=== PATIENT | female | born 1980 | race African-American/Black ===

== ENCOUNTER 2024-11-02 07:39 | Outpatient (CLI) | payer OTHER, SELFPAY ==
--- OUTSIDE RECORDS SUMMARY | 2024-11-02 07:45 | XMS_ITS | Encounter Summary ---
Author Organization [facility] Address [address] [place] [address] Care Team Providers Care Home Appliance Installer Name Role Phone Zuri Thomas MD Primary Care Provider [phone] Bola Deleon MD Unavailable Encounter Details Date Type Department Care Team (Late st Contact Info) Description 08/04/2022 niviot Message Enc [facility] Medical Group Diabetes and Endocrinology - [place] [address] [place] [address] [place] [address] [place] [address] Follow up Social History Tobacco Use Types Packs/Day Years Used Date Smoking Tobacco: Never Smokeless Tobacco: Never Alcohol Use Standard Drinks/Week Comments Yes 3.3 (1 standard drink = 0.6 oz p ure alcohol) Special occasions PHQ-2 Answer Date Recorded Patient Health Questionnaire-2 Score 1 04/01/2022 Exercise Vital Sign Answer Date Recorde d Days of Exercise per Week 4 days 2019 Minutes of Exercise per Session 60 min 01/12/2020 Education Answer Date Recorded What is the highest level of school you have completed or the highest degree you have received? Bachelor's degree (e.g., BA, AB, BS) 01/12/2020 Comments No Sex and Gender Information Value Date Recorded Sex Assigned at Female 06/07/2024 3:09 PM SPECIAL EFFECTS ARTIST Legal Sex Female 6:41 PM CDT Gender Identity Not on file Sexual Orientation Not on file Occupation Industry Job Start Date Job End Date Not on file Not on file Not on file Not on file documented as of this encounter Plan of Treatment Upcoming Encounters Date Type Department Care Team (Latest Contact Info) Description 11/15/2024 9:30 AM CDT Allied Health/Nurse Visit [facility] Mult[facility]pecialty Care - [facility] 3 [facility], [address] [place] [address] Bogdan Camacho MD 3 [facility] [place] [address] 11/15/2024 10:[address] [place] [address] Bogdan Camacho MD 3 [place] [address] 11/15/2024 2:20 PM CDT Office Visit [facility] Family Medicine - [place] [address] [place] [address] Zuri Thomas MD [address] [place] [address] 11/28/2024 7:30 AM CDT Hospital Encounter [facility] [place] [address] Bogdan Camacho MD 3 [place] [address] 11/28/2024 7:30 AM CDT - 11/28/2024 12:[address] [facility] [place] [address] Bogdan Camacho MD 3 [facility] [place] [address] LUMBAR 4-5, LUMBAR 5- SACRAL 1 ANTERIOR LUMBAR INTERBODY FUSION, INTERNAL FIXATION WITH ANTERIOR LUMBAR PLATE, LUMBAR 4, LUMBAR 5, SACRAL 1 POSTERIOR SPINAL FIXATION, AUTOGRAFT, ALLOGRAFT, BONE MORPHOGENIC PROTEIN 12/12/2024 1:40 PM CDT Office Visit [facility] Mult[facility]pecialty Care - [facility] 3 [facility], [address] [place] [address] Madelaine Zaragoza APRN 3 [facility] [address] [place] [address] 12/26/2024 3:20 PM CDT Office Visit [facility] Family Medicine [facility] [address]6 [place] [address] Zuri Thomas MD 1116 [place] [address] Scheduled Procedures Name Priority Associated Diagnoses Date/Ti me FUSION SPINAL ANTERIOR LUMBAR 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 [address] [place] [address] Referring Physician VASCULAR SURGERY 10/18/24 documented as of this encounter
--- OUTSIDE RECORDS SUMMARY | 2024-11-02 07:45 | XMS_ITS | Encounter Summary ---
Author Organization [facility] Address [address] [place] [address] Care Team Providers Care Health And Nutrition Specialist Name Role Phone Zuri Thomas MD Primary Care Provider [phone] Bola Deleon MD Unavailable Encounter Details Date Type Department Care Team (Late st Contact Info) Description 09/20/2024 LiftMetrix Message Enc [facility] Medical Group Family Medicine [facility] [address] [place] [address] Zuri Thomas MD [address] [place] [address] Vascular surgeon Social History Tobacco Use Types Packs/Day Years Used Date Smoking Tobacco: Never Passive Smoke Exposure: Never Smokeless Tobacco: Never Alcohol Use Standard Drinks/Week Comments Yes 3.3 (1 standard drink = 0.6 oz p ure alcohol) Special occasions PHQ-2 Answer Date Recorded Patient Health Questionnaire-2 Score 3 09/13/2024 Exercise Vital Sign Answer Date Recorde d [...] Sex Assigned at Female 06/07/2024 3:09 PM BEEF CATTLE SPECIALIST Legal Sex Female 6:41 PM CDT Gender Identity Not on file Sexual Orientation Not on file Occupation Industry Job Start Date Job End Date Not on file Not on file Not on file Not on file documented as of this encounter Plan of Treatment Upcoming Encounters Date Type Department Care Team (Latest Contact Info) Description 11/15/2024 9:30 AM CDT Allied Health/Nurse Visit [facility] Mult[facility]pecialty Care - [place] 3 [facility], [address] [place] [address] Bogdan Camacho MD 3 [place] [address] 11/15/2024 10:[address] [place] [address] Bogdan Camacho MD 3 [place] [address] 11/15/2024 2:20 PM CDT Office Visit [facility] Family Medicine - [address] [phone] Zuri Thomas MD [address] [place] [address] 11/28/2024 7:30 AM CDT Hospital Encounter [facility] One Day Services ONE [facility]3][place] [address] Bogdan Camacho MD 3 [place] [address] 11/28/2024 7:30 AM CDT - 11/28/2024 12:44 PM CDT Surgery [place] [facility] [place] [address] Bogdan Camacho MD 3 [place] [address] LUMBAR 4-5, LUMBAR 5- SACRAL 1 ANTERIOR LUMBAR INTERBODY FUSION, INTERNAL FIXATION WITH ANTERIOR LUMBAR PLATE, LUMBAR 4, LUMBAR 5, SACRAL 1 POSTERIOR SPINAL FIXATION, AUTOGRAFT, ALLOGRAFT, BONE MORPHOGENIC PROTEIN 12/12/2024 1:40 PM CDT Office Visit [facility] Multispecialty Care - [facility] 3 [facility], [address] [place] [address] Madelaine Zaragoza APRN 3 [facility] [address] [place] [address] 12/26/2024 3:20 PM CDT Office Visit [facility] Family Medicine 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 [place] [address] [place] [address] Referring Physician VASCULAR SURGERY 10/18/24 documented as of this encounter
--- OUTSIDE RECORDS SUMMARY | 2024-11-02 07:45 | XMS_ITS | Patient Health Record ---
Author Organization [facility] Address [address] [place], [place] [address] Care Team Providers Care Art Gilder Name Role Phone RAMAN GALDAMEZ Unavailable [phone] Delores Ge Unavailable Unavailable Reason For Referral No Information Plan Of Treatment No Information Insurance Providers Payer Name Payer Address Payer Phone Subscriber Number Group Number Insured Name Patient Relationship to Insured Coverage Start Date Coverage End Date [facility] [address] [address] [place] [id number] VIN BRUCE Self - patient is the insured
--- OUTSIDE RECORDS SUMMARY | 2024-11-02 07:45 | XMS_ITS | Encounter Summary ---
Author Organization [facility] Address [address] [place] [address] Care Team Providers Care Water Softener Servicer And Installer Name Role Phone Zuri Thomas MD Primary Care Provider [phone] Bola Deleon MD Unavailable Encounter Details Date Type Department Care Team (Late st Contact Info) Description 06/10/2022 Aster DM [employer] Message Enc [facility] Medical Group Multispecialty Care - [facility] 3 [facility], [address] [place] [address] Madelaine Zaragoza APRN [address] [facility] [address] [place] [address] Med request Social History Tobacco Use Types Packs/Day Years [...] Sex Assigned at Female 06/07/2024 3:09 PM SENIOR MEDIA BUYER Legal Sex Female 6:41 PM CDT Gender Identity Not on file Sexual Orientation Not on file Occupation Industry Job Start Date Job End Date Not on file Not on file Not on file Not on file COVID-19 Exposure Response Date Recorded In the last 10 days, have yo u been in contact with someone who was confirmed or suspected to have Coronavirus/COVID-19? No / Unsure 06/08/2022 4:33 PM SENIOR MEDIA BUYER documented as of this encounter Plan of Treatment Upcoming Encounters Date Type Department Care Team (Latest Contact Info) Description 11/15/2024 9:30 AM CDT Allied Health/Nurse Visit [facility] Multispecialty Care - [facility] 3 [facility], [address] [address] Bogdan Camacho MD 3 [place] [address] 11/15/2024 10:00 AM CDT Appointment [facility] [place] [address] Bogdan Camacho MD 3 [place] [address] 11/15/2024 2:20 PM CDT Office Visit [facility] Family Medicine - [place] [address] [place] [address] [place] [address] [place] [address] 11/28/2024 7:30 AM CDT Hospital Encounter [facility] [place] [address] Bogdan Camacho MD [address] [place] [address] 11/28/2024 7:30 AM CDT - 11/28/2024 12:44 PM CDT Surgery [facility] [place] [address] Bogdan Camacho MD 3 [place] [address] LUMBAR 4-5, LUMBAR 5- SACRAL 1 ANTERIOR LUMBAR INTERBODY FUSION, INTERNAL FIXATION WITH ANTERIOR LUMBAR PLATE, LUMBAR 4, LUMBAR 5, SACRAL 1 POSTERIOR SPINAL FIXATION, AUTOGRAFT, ALLOGRAFT, BONE MORPHOGENIC PROTEIN 12/12/2024 1:40 PM CDT Office Visit [facility] Multispecialty Care - [facility] 3 [facility], [address] [place] [address] Madelaine Zaragoza APRN [address] [facility] [address] [place] [address] 12/26/2024 3:20 PM CDT Office Visit [facility] Family Medicine - [address] [phone] Zuri Thomas MD [address] [place] [address] Scheduled Procedures Name Priority Associated Diagnoses Date/Ti me FUSION SPINAL ANTERIOR LUMBAR 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 [place] [address] [place] [address] Referring Physician VASCULAR SURGERY 10/18/24 documented as of this encounter
--- OUTSIDE RECORDS SUMMARY | 2024-11-02 07:45 | XMS_ITS | Encounter Summary ---
Author Organization [facility] Address [address] [place] [address] Care Team Providers Care Shoe Handler Name Role Phone Zuri Thomas MD Primary Care Provider [phone] Bola Deleon MD Unavailable Encounter Details Date Type Department Care Team (Late st Contact Info) Description 08/04/2022 Cop[employer] Message Enc [facility] Medical Group Diabetes and Endocrinology [place] [address] [place] [address] [place] [address] [place] [address] Social History Tobacco Use Types Packs/Day Years [...] Sex Assigned at Female 06/07/2024 3:09 PM POULTRY OFFAL ICER Legal Sex Female 6:41 PM CDT Gender Identity Not on file Sexual Orientation Not on file Occupation Industry Job Start Date Job End Date Not on file Not on file Not on file Not on file documented as of this encounter Plan of Treatment Upcoming Encounters Date Type Department Care Team (Latest Contact Info) Description 11/15/2024 9:30 AM CDT Allied Health/Nurse Visit [facility] Multispecialty Care - [facility] 3 [facility], [address] [place] [address] Bogdan Camacho MD 3 [facility] [place] [address] 11/15/2024 10:[address] [address] Bogdan Camacho MD 3 [place] [address] 11/15/2024 2:20 PM CDT Office Visit [facility] Family Medicine - [place] [address] [place] [address] Zuri Thomas MD [address] [place] [address] 11/28/2024 7:30 AM CDT Hospital Encounter [facility] [place] [address] Bogdan Camacho MD 3 [place] [address] 11/28/2024 7:30 AM CDT - 11/28/2024 12:[address] [place] [address] Bogdan Camacho MD 3 [facility] [place] [address] LUMBAR 4-5, LUMBAR 5- SACRAL 1 ANTERIOR LUMBAR INTERBODY FUSION, INTERNAL FIXATION WITH ANTERIOR LUMBAR PLATE, LUMBAR 4, LUMBAR 5, SACRAL 1 POSTERIOR SPINAL FIXATION, AUTOGRAFT, ALLOGRAFT, BONE MORPHOGENIC PROTEIN 12/12/2024 1:40 PM CDT Office Visit [facility] Multispecialty Care - [facility] 3 [facility], [address] [place] [address] Madelaine Zaragoza APRN [address] 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 [address] [place] [address] Referring Physician VASCULAR SURGERY 10/18/24 documented as of this encounter
--- OUTSIDE RECORDS SUMMARY | 2024-11-02 07:45 | XMS_ITS | Clinical Summary ---
Author Organization [facility] Address [address] [place] [address] Care Team Providers Care Surgical Nurse Name Role Phone Unavailable Primary Care Provider Unavailabl e Social History Tobacco Use Types Packs/Day Years Used Date Smoking Tobacco: Never Assessed Comments Unknown Sex and Gender Information Value Date Recorded Sex Assigned at Not on file Legal Sex Female 2:40 PM REGISTERED PHARMACIST Gender Identity Not on file Sexual Orientation Not on file Plan of Treatment Health Maintenance Due Date Last Done Comments Hepatitis C Virus (HCV) Screening 1978 Hepatitis B Immunization (1 of 3 - 19+ 3-dose series) 1997 Pap Smear 1999 Cervical Cancer Screening (CCS) 2008 HPV/Cotest 2008 Cologuard 2023 Colonoscopy 2023 Colorectal Cancer Screening 2023 Immunochemical Fecal Occult Blood 2023 SARS-COV-2 Immunization ( season) 2023 06/11/2020, 05/21/2020 Influenza Immunization (#1) 2024 01/03/2019, 0 12/17/2018 Respiratory Syncytial Virus (RSV) Immunization (Adult) (1 - 1-dose 75+ series) 2053 DTaP/Tdap/Td Immunization Discontinued 2014, 11/13/1989, 06/12/1980, Additional history exists TdaP Immunization Completed 05/02/2014 Human Papillomavirus (HPV) Immunization Aged Out No longer eligible based on patient's age to complete this topic Meningococcal Immunization (ACWY) Aged Out No longer eligible based on patient's age to complete this topic Pneumococcal Immunization Combined Aged Out No longer eligible based on patient's age to complete this topic Rotavirus Immunization Aged Out No lo nger eligible based on patient's age to complete this topic
--- OUTSIDE RECORDS SUMMARY | 2024-11-02 07:45 | XMS_ITS | Encounter Summary ---
Author Organization [facility] Address [address] [place] [address] Care Team Providers Care Supervisor Home Restoration Service Name Role Phone Zuri Thomas MD Primary Care Provider [phone] Bola Deleon MD Unavailable Encounter Details Date Type Department Care Team ( Contact Info) Description 09/30/2022 MyChart Message Enc [facility] Medical Group - [facility] [address] [place] [address] [employer], [facility] Provider Air Quality Message Social History Tobacco Use Types Packs/Day Years [...] Sex Assigned at Female 06/07/2024 3:09 PM LITIGATION COORDINATOR Legal Sex Female 6:41 PM CDT Gender Identity Not on file Sexual Orientation Not on file Occupation Industry Job Start Date Job End Date Not on file Not on file Not on file Not on file documented as of this encounter Plan of Treatment Upcoming Encounters Date Type Department Care Team (Latest Contact Info) Description 11/15/2024 9:30 AM CDT Allied Health/Nurse Visit [facility] Multispecialty Care - [facility] 3 [facility], [address] [address] Bogdan Camacho MD 3 [place] [address] 11/15/2024 10:[address] [place] [address] Bogdan Camacho MD 3 [place] [address] 11/15/2024 2:20 PM CDT Office Visit [facility] Family Medicine - [place] [address] [place] [address] Zuri Thomas MD [address] [place] [address] 11/28/2024 7:30 AM CDT Hospital Encounter [facility] [place] [address] Bogdan Camacho MD 3 [place] [address] 11/28/2024 7:30 AM CDT - 11/28/2024 12:[address] [place] [address] Bogdan Camacho MD 3 [place] [address] LUMBAR 4-5, LUMBAR 5- SACRAL 1 ANTERIOR LUMBAR INTERBODY FUSION, INTERNAL FIXATION WITH ANTERIOR LUMBAR PLATE, LUMBAR 4, LUMBAR 5, SACRAL 1 POSTERIOR SPINAL FIXATION, AUTOGRAFT, ALLOGRAFT, BONE MORPHOGENIC PROTEIN 12/12/2024 1:40 PM CDT Office Visit [facility] Mult[facility]ialty Care - [facility] 3 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 [address] [place] [address] Referring Physician VASCULAR SURGERY 10/18/24 documented as of this encounter
--- OUTSIDE RECORDS SUMMARY | 2024-11-02 07:45 | XMS_ITS | Encounter Summary ---
Author Organization [facility] Address [address] [place] [address] Care Team Providers Care Continuum Of Care Manager Name Role Phone Zuri Thomas MD Primary Care Provider [phone] Bola Deleon MD Unavailable Encounter Details Date Type Department Care Team (Late st Contact Info) Description 08/16/[address] Mediat Message Enc [facility] Medical Group Multispecialty Care - [facility] 3 [facility], [address] [place] [phone] Bogdan Camacho MD 3 [place] [address] Question /FYI Social History Tobacco Use Types Packs/Day Years Used Date Smoking Tobacco: Never Smokeless Tobacco: Never Alcohol Use Standard Drinks/Week Comments Yes 3.3 (1 standard drink = 0.6 oz p ure alcohol) Special occasions PHQ-2 Answer Date Recorded Patient Health Questionnaire-2 Score 2 06/23/2024 Exercise Vital Sign Answer Date Recorde d [...] Sex Assigned at Female 06/07/2024 3:09 PM PRODUCT SUPPORT REPRESENTATIVE Legal Sex Female 6:41 PM CDT Gender Identity Not on file Sexual Orientation Not on file Occupation Industry Job Start Date Job End Date Not on file Not on file Not on file Not on file documented as of this encounter Plan of Treatment Upcoming Encounters Date Type Department Care Team (Latest Contact Info) Description 11/15/2024 9:30 AM CDT Allied Health/Nurse Visit [facility] Multispecialty Care - [place] 3 [facility], [address] [place] [address] Bogdan Camacho MD 3 [place] [address] 11/15/2024 10:[address] [facility] [place] [address] Bogdan Camacho MD 3 [place] [address] 11/15/2024 2:20 PM CDT Office Visit [facility] Family Medicine - [address] [phone] Zuri Thomas MD [address] [place] [address] 11/28/2024 7:30 AM CDT Hospital Encounter [facility] [place] [address] Bogdan Camacho MD 3 [place] [address] 11/28/2024 7:30 AM CDT - 11/28/2024 12:44 PM CDT Surgery [facility] [place] [address] Bogdan Camacho MD 3 [place] [address] LUMBAR 4-5, LUMBAR 5- SACRAL 1 ANTERIOR LUMBAR INTERBODY FUSION, INTERNAL FIXATION WITH ANTERIOR LUMBAR PLATE, LUMBAR 4, LUMBAR 5, SACRAL 1 POSTERIOR SPINAL FIXATION, AUTOGRAFT, ALLOGRAFT, BONE MORPHOGENIC PROTEIN 12/12/2024 1:40 PM CDT Office Visit [facility] Medical Group Multispecialty Care - [facility] 3 [facility], [address] [place] [address] Madelaine Zaragoza APRN 3 [facility] [address] [place] [address] 12/26/2024 3:20 PM CDT Office Visit [facility] Medical Group Family Medicine [facility] [address] [place] [phone] Zuri Thomas MD [address] [place] [address] Scheduled Procedures Name Priority Associated Diagnoses Date/Ti me FUSION SPINAL ANTERIOR LUMBAR INTERBODY 2 LEVEL SPONDYLOLISTHESIS OF LUMBAR REGION, 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
--- OUTSIDE RECORDS SUMMARY | 2024-11-02 07:46 | XMS_ITS | Encounter Summary ---
Author Organization [facility] Address [address] [place] [address] Care Team Providers Care Waiter/Waitress Economy Class Name Role Phone Zuri Thomas MD Primary Care Provider [phone] Bola Deleon MD Unavailable Encounter Details Date Type Department Care Team (Late st Contact Info) Description 07/28/2024 [email or web address] Message Enc [facility] Medical Group Family Medicine [facility] [address] [place] [address] Zuri Thomas MD [address] [place] [address] Annual wellness Social History Tobacco Use Types Packs/Day Years [...] Sex Assigned at Female 06/07/2024 3:09 PM HAND RIVETER Legal Sex Female 6:41 PM CDT Gender Identity Not on file Sexual Orientation Not on file Occupation Industry Job Start Date Job End Date Not on file Not on file Not on file Not on file documented as of this encounter Plan of Treatment Upcoming Encounters Date Type Department Care Team (Latest Contact Info) Description 11/15/2024 9:30 AM CDT Allied Health/Nurse Visit [facility] Multispecialty Care - [facility] [address] [place], [address] [place] [address] Bogdan Camacho MD 3 [facility] [address] 11/15/2024 10:[address] [place] [address] Bogdan Camacho MD 3 [place] [address] 11/15/2024 2:20 PM CDT Office Visit [facility] Family Medicine - [address] [phone] Zuri Thomas MD [address] [place] [address] 11/28/2024 7:30 AM CDT Hospital Encounter [facility] [address] Bogdan Camacho MD 3 [place] [address] 11/28/2024 7:30 AM CDT - 11/28/2024 12:[address] [facility] [place] [address] Bogdan Camacho MD 3 [facility] [address] LUMBAR 4-5, LUMBAR 5- SACRAL 1 ANTERIOR LUMBAR INTERBODY FUSION, INTERNAL FIXATION WITH ANTERIOR LUMBAR PLATE, LUMBAR 4, LUMBAR 5, SACRAL 1 POSTERIOR SPINAL FIXATION, AUTOGRAFT, ALLOGRAFT, BONE MORPHOGENIC PROTEIN 12/12/2024 1:40 PM CDT Office Visit [facility] Multispecialty Care - [facility] 3 [facility], [address] [place] [address] Madelaine Zaragoza APRN 3 [facility] [address] [place] [address] 12/26/2024 3:20 PM CDT Office Visit [facility] Family Medicine [facility] [address] [place] [address] Zuri Thomas MD [facility]6 [place] [address] Scheduled Procedures Name Priority Associated Diagnoses Date/Ti me FUSION SPINAL ANTERIOR LUMBAR INTERBODY 2 LEVEL SPONDYLOLISTHESIS OF LUMBAR REGION, 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 [place] [id number] [place] [address] Referring Physician VASCULAR SURGERY 10/18/24 documented as of this encounter
--- OUTSIDE RECORDS SUMMARY | 2024-11-02 07:46 | XMS_ITS | Encounter Summary ---
Author Organization [facility] Address [address] [place] [address] Care Team Providers Care Earth Science Teacher Name Role Phone Zuri Thomas MD Primary Care Provider [phone] Bola Deleon MD Unavailable Reason for Visit * Reason Onset Date Comments Refill Request 09/11/2024 Encounter Details Date Type Department Care Team (Late st Contact Info) Description 09/11/2024 PocketMobilet Message Enc [facility] Medical Group Family Medicine [facility] [address] [place] [address] [place] [address] [place] [address] Medication Social History Tobacco Use Types Packs/Day Years [...] Sex Assigned at Female 06/07/2024 3:09 PM 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 Question Answer Date of Assessment Author Status Little interest or pleasure in doing things Several days 09/13/2024 8:02 AM KALEET Sara Chavez MA Active Feeling down, depressed, or hopeless More than half the days 09/13/2024 8:02 AM CDT Sara Chavez MA Active Patient Health Questionnaire-2 Score 3 09/13/2024 8:02 AM KALEET Sara Chavez MA Active * Question Answer Date of Assessment Author Status Trouble falling or staying asleep, or sleeping too much Nearly every day 09/13/2024 8:02 AM Sara Garcia MA Active Feeling tired or having little energy Nearly every day 09/13/2024 8:02 AM Sara Garcia MA Active Poor appetite or overeating Nearly every day 09/13/2024 8:02 AM Sara Garcia MA Active Feeling bad about yourself - or that you are a failure or have let yourself or your family down Several days 09/13/2024 8:02 AM Sara Garcia MA Active Trouble concentrating on things, such as reading the newspaper or watching television More than half the days 09/13/2024 8:02 AM Sara Garcia MA Active Moving or speaking so slowly that other people could have noticed? Or the opposite - being so fidgety or restless that you have been moving around a lot more than usual. Nearly every day 09/13/2024 8:02 AM Sara Garcia MA Active Thoughts that you would be better off or hurting yourself in some way Not at all 09/13/2024 8:02 AM Sara Garcia MA Active Patient Health Questionnaire-9 Score 18 09/13/2024 8:02 AM CDT Sara Chavez MA Active * If you checked off any problems on this questionnaire so far, Question Answer Date of Assessment Author Status How difficult have these problems made it for you to do your work, take care of things at home, or get along with other people? Somewhat difficult 09/13/2024 8:02 AM CDT Sara Chavez MA Active documented as of this encounter Progress Notes * Mirza Underwood MA - 09/11/2024 4:26 PM CDT Recent Visits Date Type Provider Dept 06/23/24 Office Visit Zuri Thomas MD [facility] 06/07/24 Office Visit Zuri Thomas MD [facility] Showing recent visits within past 285 days and meeting all other requirements Future Appointments No visits were found meeting these conditions. Showing future appointments within next 105 days and meeting all other requirements documented in this encounter Plan of Treatment Upcoming Encounters Date Type Department Care Team (Latest Contact Info) Description 11/15/2024 9:30 AM CDT Allied Health/Nurse Visit [facility] Mult[facility]ialty Care - [facility] [address] [facility], [address] [place] [address] Bogdan Camacho MD 3 [place] [address] 11/15/2024 10:00 AM CDT Appointment [facility] [address] Bogdan Camacho MD 3 [place] [address] 11/15/2024 2:20 PM CDT Office Visit [facility] Family Medicine - [address] [address] Zuri Thomas MD [address] [place], [place] [id number] 11/28/2024 7:30 AM CDT Hospital Encounter [facility] [place] [address] Bogdan Camacho MD 3 [place] [address] 11/28/2024 7:30 AM CDT - 11/28/2024 12:44 PM CDT Surgery [place] [address] Bogdan Camacho MD 3 [place] [address] LUMBAR 4-5, LUMBAR 5- SACRAL 1 ANTERIOR LUMBAR INTERBODY FUSION, INTERNAL FIXATION WITH ANTERIOR LUMBAR PLATE, LUMBAR 4, LUMBAR 5, SACRAL 1 POSTERIOR SPINAL FIXATION, AUTOGRAFT, ALLOGRAFT, BONE MORPHOGENIC PROTEIN 12/12/2024 1:40 PM CDT Office Visit [facility] Mult[facility]pecialty Care - [facility] 3 [facility], [address] [facility] [place] [address] Madelaine Zaragoza, ABIMAEL [address] 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
--- OUTSIDE RECORDS SUMMARY | 2024-11-02 07:46 | XMS_ITS | Encounter Summary ---
Author Organization [facility] Address [address] [place] [address] Care Team Providers Care Methane Gas Collection System Operator Name Role Phone Zuri Thomas MD Primary Care Provider [phone] Bola Deleon MD Unavailable Encounter Details Date Type Department Care Team (Late st Contact Info) Description 07/12/2024 Sribut Message Enc [facility] Medical Group Multispecialty Care - [facility] 3 [facility], [address] [place] [phone] Bogdan Camacho MD 3 [place] [address] Headaches Social History Tobacco Use Types Packs/Day Years [...] Sex Assigned at Female 06/07/2024 3:09 PM 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 Offered to place patient on waitilist for sooner appt. * Lachelle Lerner LPN - 07/21/2024 11:35 AM CDT Pt states she started having right lumbar pain down right buttock wrapping into right groin down lateral upper leg into side of gomez that started 2 weeks ago with no cause. Denies any N/T in legs, feet, toes Bend down worsens pain Rates pain a 10/10 at its worst, average daily pain level is a 6/10. Ibuprofen, Tylenol. No UI/bowel movement incontinence, no falls, injuries/accidents. documented in this encounter Plan of Treatment Upcoming Encounters Date Type Department Care Team (Latest Contact Info) Description 11/15/2024 9:30 AM CDT Allied Health/Nurse Visit [facility] Medical Group Multispecialty Care - [facility] 3 [facility], [address] [place] [address] Bogdan Camacho MD 3 [place] [address] 11/15/2024 10:00 AM CDT Appointment [facility] [place] [address] Bogdan Camacho MD 3 [place] [address] 11/15/2024 2:20 PM CDT Office Visit [facility] Family Medicine - [place] [address] [place] [address] Zuri Thomas MD [facility]6 [place] [address] 11/28/2024 7:30 AM CDT Hospital Encounter [facility] [place] [address] Bogdan Camacho MD 3 [place] [address] 11/28/2024 7:30 AM CDT - 11/28/2024 12:44 PM CDT Surgery [facility] [place] [address] Bogdan Camacho MD 3 [place] [address] LUMBAR 4-5, LUMBAR 5- SACRAL 1 ANTERIOR LUMBAR INTERBODY FUSION, INTERNAL FIXATION WITH ANTERIOR LUMBAR PLATE, LUMBAR 4, LUMBAR 5, SACRAL 1 POSTERIOR SPINAL FIXATION, AUTOGRAFT, ALLOGRAFT, BONE MORPHOGENIC PROTEIN 12/12/2024 1:40 PM CDT Office Visit [facility] Multispecialty Care - [facility] 3 [facility], [address] [place] [address] Madelaine Zaragoza APRN 3 [facility] [address] [place] [address] 12/26/2024 3:20 PM CDT Office Visit [facility] Medical Group Family [facility] [address] [place] [address] Zuri Thomas MD [address] [place] [address] Scheduled Procedures Name Priority Associated Diagnoses Date/Ti me FUSION SPINAL ANTERIOR LUMBAR INTERBODY 2 LEVEL SPONDYLOLISTHESIS OF LUMBAR REGION, 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
--- OUTSIDE RECORDS SUMMARY | 2024-11-02 07:46 | XMS_ITS | Encounter Summary ---
Author Organization [facility] Address [address] [place] [address] Care Team Providers Care Still Runner Name Role Phone Zuri Thomas MD Primary Care Provider [phone] Bola Deleon MD Unavailable Encounter Details Date Type Department Care Team (Late st Contact Info) Description 07/10/2024 Business Textert Message Enc [facility] Medical Group Family Medicine [facility] [address] [place] [address] [place] [address] [place] [address] Symptoms Social History Tobacco Use Types Packs/Day Years [...] Sex Assigned at Female 06/07/2024 3:09 PM CEMENT BLOCK 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 Legal Sex Female 6:41 PM CDT Gender Identity Not on file Sexual Orientation Not on file Occupation Industry Job Start Date Job End Date Not on file Not on file Not on file Not on file documented as of this encounter Plan of Treatment Upcoming Encounters Date Type Department Care Team (Latest Contact Info) Description 11/15/2024 9:30 AM CDT Allied Health/Nurse Visit [facility] Mult[facility]pecialty Care - [facility] [address] [place], [address] [place] [address] Bogdan Camacho MD 3 [facility] [place] [address] 11/15/2024 10:[address] [place] [address] Bogdan Camacho MD 3 [place] [address] 11/15/2024 2:20 PM CDT Office Visit [facility] Family Medicine - [address] [phone] Zuri Thomas MD [address] [place] [address] 11/28/2024 7:30 AM CDT Hospital Encounter [facility] [place] [address] Bogdan Camacho MD 3 [place] [address] 11/28/2024 7:30 AM CDT - 11/28/2024 12:[address] [place] [address] Bogdan Camacho MD 3 [facility] [place] [address] LUMBAR 4-5, LUMBAR 5- SACRAL 1 ANTERIOR LUMBAR INTERBODY FUSION, INTERNAL FIXATION WITH ANTERIOR LUMBAR PLATE, LUMBAR 4, LUMBAR 5, SACRAL 1 POSTERIOR SPINAL FIXATION, AUTOGRAFT, ALLOGRAFT, BONE MORPHOGENIC PROTEIN 12/12/2024 1:40 PM CDT Office Visit [facility] Multispecialty Care - [facility] 3 [facility], [address] [place] [address] Madelaine Zaragoza APRN 3 [facility] [address] [place] [address] 12/26/2024 3:20 PM CDT Office Visit [facility] Family Medicine [facility] [address] [place] [address] Zuri Thomas MD 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 [place] [place] [address] Referring Physician VASCULAR SURGERY 10/18/24 documented as of this encounter
--- OUTSIDE RECORDS SUMMARY | 2024-11-02 07:46 | XMS_ITS | Encounter Summary ---
Author Organization [facility] Address [address] [place] [address] Care Team Providers Care Art Professor Name Role Phone Zuri Thomas MD Primary Care Provider [phone] Bola Deleon MD Unavailable Encounter Details Date Type Department Care Team (Late st Contact Info) Description 07/06/2024 T-ZONE Message Enc [facility] Medical Group Family Medicine [facility] [address] [place] [address] Zuri Thomas MD [address] [place] [address] Medical records Social History Tobacco Use Types Packs/Day Years [...] Sex Assigned at Female 06/07/2024 3:09 PM E COMMERCE DEVELOPER Legal Sex Female 6:41 PM CDT Gender Identity Not on file Sexual Orientation Not on file Occupation Industry Job Start Date Job End Date Not on file Not on file Not on file Not on file documented as of this encounter Plan of Treatment Upcoming Encounters Date Type Department Care Team (Latest Contact Info) Description 11/15/2024 9:30 AM CDT Allied Health/Nurse Visit [facility] Multispecialty Care - [facility] [address] [place], [address] [place] [address] Bogdan Camacho MD 3 [facility] [place] [address] 11/15/2024 10:[address] [place] [address] Bogdan Camacho MD 3 [place] [address] 11/15/2024 2:20 PM CDT Office Visit [facility] Family Medicine - [address] [phone] Zuri Thomas MD [address] [place] [address] 11/28/2024 7:30 AM CDT Hospital Encounter [facility] [place] [place] [address] Bogdan Camacho MD 3 [place] [address] 11/28/2024 7:30 AM CDT - 11/28/2024 12:[address] [facility] [place] [address] Bogdan Camacho MD 3 [facility] [place] [address] LUMBAR 4-5, LUMBAR 5- SACRAL 1 ANTERIOR LUMBAR INTERBODY FUSION, INTERNAL FIXATION WITH ANTERIOR LUMBAR PLATE, LUMBAR 4, LUMBAR 5, SACRAL 1 POSTERIOR SPINAL FIXATION, AUTOGRAFT, ALLOGRAFT, BONE MORPHOGENIC PROTEIN 12/12/2024 1:40 PM CDT Office Visit [facility] Multispecialty Care - [facility] 3 [facility], [address] [place] [address] Madelaine Zaragoza APRN 3 [facility] [address] [place] [address] 12/26/2024 3:20 PM CDT Office Visit [facility] Family Medicine [facility] [address] [place] [address] Zuri Thomas MD [facility]6 [place] [address] Scheduled Procedures Name Priority Associated Diagnoses Date/Ti me FUSION SPINAL ANTERIOR LUMBAR INTERBODY 2 LEVEL SPONDYLOLISTHESIS OF LUMBAR REGION, 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 [address] [place] [address] Referring Physician VASCULAR SURGERY 10/18/24 documented as of this encounter
--- OUTSIDE RECORDS SUMMARY | 2024-11-02 07:46 | XMS_ITS | Encounter Summary ---
Author Organization [facility] Address [address] [place] [address] Care Team Providers Care Package Reinspector Name Role Phone Zuri Thomas MD Primary Care Provider [phone] Bola Deleon MD Unavailable Encounter Details Date Type Department Care Team (Late st Contact Info) Description 11/01/2024 Orders Only [facility] [place] [address] Casey Parham MD [address] [place] [address] Social History Tobacco Use Types Packs/Day Years [...] Sex Assigned at Female 06/07/2024 3:09 PM EVAPORATOR OPERATOR MOLASSES Legal Sex Female 6:41 PM CDT Gender Identity Not on file Sexual Orientation Not on file Occupation Industry Job Start Date Job End Date Not on file Not on file Not on file Not on file documented as of this encounter Plan of Treatment Upcoming Encounters Date Type Department Care Team (Latest Contact Info) Description 11/15/2024 9:30 AM CDT Allied Health/Nurse Visit [facility] [address] [facility] [address] [place] [address] Bogdan Camacho MD [address] [facility] [place] [address] 11/15/2024 10:[address] [facility] [place] [address] Bogdan Camacho MD 3 [place] [address] 11/15/2024 2:20 PM CDT Office Visit [facility] Family Medicine - [phone] [place] [phone] Zuri Thomas MD [address] [place] [address] 11/28/2024 7:30 AM CDT Hospital Encounter [facility] [place] [address] Bogdan Camacho MD 3 [place] [address] 11/28/2024 7:30 AM CDT - 11/28/2024 12:[address] [place] [address] Bogdan Camacho MD 3 [place] [address] LUMBAR 4-5, LUMBAR 5- SACRAL 1 ANTERIOR LUMBAR INTERBODY FUSION, INTERNAL FIXATION WITH ANTERIOR LUMBAR PLATE, LUMBAR 4, LUMBAR 5, SACRAL 1 POSTERIOR SPINAL FIXATION, AUTOGRAFT, ALLOGRAFT, BONE MORPHOGENIC PROTEIN 12/12/2024 1:40 PM CDT Office Visit [facility]ty Care - [facility] [address] [facility], [address] [place] [address] Madelaine Zaragoza APRN 3 [facility] [address] [place] [address] 12/26/2024 3:20 PM CDT Office Visit [facility] Family Medicine [facility] [address] [place] [address] Zuri Thomas MD [address] [place] [address] Pending Results Name Type Priority Associated Diagnoses Date /Time SOMATOMEDIN IGF-I Lab Routine Benign neoplasm of pituitary gland ([facility]) 11/01/2024 8:18 AM CDT GROWTH HORMONE,HGH,SOMATOTROPI Lab Routine Benign neoplasm of pituitary gland ([facility]) 11/01/2024 8:18 AM CDT ACTH Lab Routine Benign neoplasm of pituitary gland ([facility]) 11/01/2024 8:18 AM CDT Scheduled Orders Name Type Priority Associated Diagnoses Orde r Schedule SOMATOMEDIN IGF-I Lab Routine Benign neoplasm of pituitary gland ([facility]) 1 Occurrences starting 11/01/2024 until 11/01/2025 GROWTH HORMONE,HGH,SOMATOTROPI Lab Routine Benign neoplasm of pituitary gland ([facility]) 1 Occurrences starting 11/01/2024 until 11/01/2025 ACTH Lab Routine Benign neoplasm of pituitary gland ([facility]) 1 Occurrences starting 11/01/2024 until 11/01/2025 Scheduled Procedures Name Priority Associated Diagnoses Date/Ti me FUSION SPINAL ANTERIOR LUMBAR INTERBODY 2 LEVEL SPONDYLOLISTHESIS OF LUMBAR REGION, 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 Author Autogenerat ed Goal Care Plan Autogenerated Problem No Dulce Rivers RN documented as of this encounter Results * CORTISOL AM (11/01/2024 8:18 AM CDT) Pathologist [facility] CORTISOL 8AM 8.9 4.0 - 20.0 mcg/dL 11/01/2024 8:59 AM CDT [facility] 11/01/2024 8:18 AM CDT Casey Parham MD LABORATORY Final Result [facility] 3 [place] [address], * (ABNORMAL) COMPREHENSIVE METABOLIC PANEL (11/01/2024 8:18 AM CDT) GLUCOSE 87 70 - 99 MG/DL 11/01/2024 9:03 AM CDT [facility] BUN 12 7 - 18 MG/DL 11/01/2024 9:03 AM CDT [facility] CREATININE S/P/B 0.82 0.55 - 1.02 MG/DL 11/01/2024 9:03 AM CDT [facility] SODIUM S/P/B 139 136 - 145 MMOL/L 11/01/2024 9:03 AM CDT [facility] POTASSIUM S/P/B 4.2 3.5 - 5.1 MMOL/L 11/01/2024 9:03 AM T [facility] CHLORIDE S/P/B 110 97 - 115 MMOL/L 11/01/2024 9:03 AM T [facility] CO2 26.9 21 - 32 MMOL/L 11/01/2024 9:03 AM T [facility] CALCIUM S/P/B 9.1 8.5 - 10.1 MG/DL 11/01/2024 9:03 AM T [facility] BILIRUBIN TOTAL S/P/B 0.4 0.2 - 1.2 MG/DL 11/01/2024 9:03 AM T [facility] Comment: THIS ASSAY IS NOT RECOMMENDED FOR PATIENTS UNDERGOING TREATMENT WITH ELTROMBOPAG DUE TO THE POTENTIAL FOR FALSELY ELEVATED RESULTS. TOTAL PROTEIN S/P/B 7.2 6.4 - 8.2 G/DL 11/01/2024 9:03 AM T [facility] ALBUMIN S/P/B 3.5 3.4 - 5.0 G/DL 11/01/2024 9:03 AM T [facility] AST 16 15 - 37 U/L 11/01/2024 9:03 AM [facility] ALT 23 14 - 55 U/L 11/01/2024 9:03 AM T [facility] ALKALINE PHOSPHATASE S/P/B 70 50 - 136 U/L 11/01/2024 9:03 AM T [facility] ANION GAP 2.1 2 - 10 MMOL/L 11/01/2024 9:03 AM [facility] BUN CREATININE RATIO 14.6 6 - 26 11/01/2024 9:03 AM [facility] A/G RATIO 0.9(L) 1.0 - 2.0 RATIO 11/01/2024 9:03 AM CDT [facility] GFR ESTIMATE 89(L) >90 ML/MIN/1.7 3 M2 11/01/2024 9:03 AM CDT [facility] Comment: NOTE: eGFR is not calculated for patients <18 years of age or gender unknown. This is an estimated GFR calculation using the new CKD EPI creatinine equation without race and so does not require a correction factor for race. This estimated GFR should not be used for calculating drug doses. 11/01/2024 8:18 AM CDT Casey Parham MD LABORATORY Final Result Performing Organization Address City/[facility]/ZIP Co de Phone Number [facility] [address] [place] [address], [place] [phone] * FSH, FOLLICLE STIM HORMONE (11/01/2024 8:18 AM CDT) FSH 31.8 MIU/ML 11/01/2024 12:26 PM CDT [facility] Comment: REFERENCE RANGES FOR FEMALES: FOLLICULAR 3.5-12.5 MID-CYCLE 4.7-21.5 LUTEAL 1.7-7.7 POSTMENOPAUSAL 25.8-134.8 11/01/2024 8:18 AM CDT Casey Parham MD LABORATORY Final Result [facility] [address] [place] [address], [place] [phone] * PROLACTIN (11/01/2024 8:18 AM CDT) PROLACTIN 11.6 NG/ML 11/01/2024 12:26 PM CDT [facility] Comment:FEMALE REFERENCE RAN GE (NON-): 4.8-23.3 11/01/2024 8:18 AM CDT Casey Parham MD LABORATORY Final Result [facility] [address] [place] [address], * (ABNORMAL) THYROXINE, FREE (FT4) (11/01/2024 8:18 AM CDT) FREE T4 0.64(L) 0.76 - 1.46 NG/DL 11/01/2024 9:03 AM CDT [facility] 11/01/2024 8:18 AM CDT Casey Parham MD LABORATORY Final Result Performing Organization Address City/[facility]/RUST Co de Phone Number [facility] [address] [place] [address], * THYROID STIM HORMONE TSH (11/01/2024 8:18 AM CDT) TSH 2.440 0.358 - 3.74 uIU/ML 11/01/2024 9:03 AM CDT [facility] Comment: HIGH DOSES OF BIOTIN MAY INTERFERE WITH THIS TEST RESULT. CORRELATION TO CLINICAL HISTORY AND PRESENTATION RECOMMENDED. 11/01/2024 8:18 AM CDT Casey Parham MD LABORATORY Final Result [facility] [address] [place] [address], [place] [phone] * LH, LUTEINIZING HORMONE (11/01/2024 8:18 AM CDT) Luteinizing Hormone 27.0 MIU/ML 11/01/2024 12:26 PM CDT [facility] Comment: REFERENCE RANGES FOR FEMALES: FOLLICULAR 2.4-12.6 MID-CYCLE 14.0-95.6 LUTEAL 1.0-11.4 POSTMENOPAUSAL 7.7-58.5 11/01/2024 8:18 AM CDT Casey Parham MD LABORATORY Final Result [facility] [address] [place] [address], documented in this encounter Visit Diagnoses Diagnosis Benign neoplasm of pituitary gland (CMS/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 [facility] [address] [place] [address] Referring Physician VASCULAR SURGERY 10/18/24 documented as of this encounter
--- OUTSIDE RECORDS SUMMARY | 2024-11-02 07:46 | XMS_ITS | Encounter Summary ---
Author Organization [facility] Address [address] [place] [address] Care Team Providers Care Meter Tester Primary Name Role Phone Zuri Thomas MD Primary Care Provider [phone] Bola Deleon MD Unavailable Encounter Details Date Type Department Care Team (Late st Contact Info) Description 05/31/2023 Noise Freaks Message Enc [facility] Medical [facility] Family Medicine [facility] [address] [place] [address] [place] [address] [place] [address] [facility] Social History Tobacco Use Types Packs/Day Years Used Date Smoking Tobacco: Never Smokeless Tobacco: Never Alcohol Use Standard Drinks/Week Comments Yes 1.7 (1 standard drink = 0.6 oz p ure alcohol) Special occasions PHQ-2 Answer Date Recorded Patient Health Questionnaire-2 Score 2 05/20/2023 Exercise Vital Sign Answer Date Recorde d [...] Sex Assigned at Female 06/07/2024 3:09 PM 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 Legal Sex Female 6:41 PM CDT Gender Identity Not on file Sexual Orientation Not on file Occupation Industry Job Start Date Job End Date Not on file Not on file Not on file Not on file documented as of this encounter Plan of Treatment Upcoming Encounters Date Type Department Care Team (Latest Contact Info) Description 11/15/2024 9:30 AM CDT Allied Health/Nurse Visit [facility] Multispecialty Care - [facility] [address] [facility], [address] [place] [address] Bogdan Camacho MD 3 [facility] [place] [address] 11/15/2024 10:[address] [place] [address] Bogdan Camacho MD 3 [place] [address] 11/15/2024 2:20 PM CDT Office Visit [facility] Family Medicine - [place] [place] [address] Zuri Thomas MD [address] [place] [address] 11/28/2024 7:30 AM CDT Hospital Encounter [facility] [place] [address] Bogdan Camacho MD 3 [place] [address] 11/28/2024 7:30 AM CDT - 11/28/2024 12:[address] [facility] [place] [address] Bogdan Camacho MD 3 [facility] [place] [address] LUMBAR 4-5, LUMBAR 5- SACRAL 1 ANTERIOR LUMBAR INTERBODY FUSION, INTERNAL FIXATION WITH ANTERIOR LUMBAR PLATE, LUMBAR 4, LUMBAR 5, SACRAL 1 POSTERIOR SPINAL FIXATION, AUTOGRAFT, ALLOGRAFT, BONE MORPHOGENIC PROTEIN 12/12/2024 1:40 PM CDT Office Visit [facility] Multispecialty Care - [facility] [address] [facility], [address] [place] [address] Madelaine Zaragoza APRN 3 [facility] [address] [place] [address] 12/26/2024 3:20 PM CDT Office Visit [facility] Family Medicine [facility] [address] [place] [address] Zuri Thomas MD [facility]6 [place] [address] Scheduled Procedures Name Priority Associated Diagnoses Date/Ti me FUSION SPINAL ANTERIOR LUMBAR INTERBODY 2 LEVEL SPONDYLOLISTHESIS OF LUMBAR REGION, 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 [facility] [address] [place] [address] Referring Physician VASCULAR SURGERY 10/18/24 documented as of this encounter
--- OUTSIDE RECORDS SUMMARY | 2024-11-02 07:46 | XMS_ITS | Clinical Summary ---
Author Organization [facility] [employer] Address [address] [facility] [place] [address] Care Team Providers Care Coating Operator Name Role Phone Zuri Thomas MD Primary Care Provider [phone] Source Comments [facility] [employer],non-owned Affiliates and Associated Physician Practices is amultiple site organization consisting of ambulatory clinics and hospital sitesin [place], [place], [place] and [place]. This disclosure is being madepursuant to the Care Everywhere program and may not contain all information available regarding this patient. Last updated 17.[facility] [employer] Allergies Active Allergy Reactions Criticality Noted Date Comments Amoxicillin Anaphylaxis High 06/23/2018 Patient is not sure that she is allergic to this. Definitely has urticaria with cephalosporins Cephalexin Urticaria Medium 11/09/2019 Cephalosporins Rash Medium Medications * Be aware that medications may not be up to date on this document. Alwaysverify current medications with the patient. Budesonide-Formo terol Fumarate (SYMBICORT IN) Inhale 2 puffs by mouth once daily Active fluticasone propionate (FLONASE) 50 MCG/ACT nasal sprayIndications :Acute sinusitis, recurrence not specified, unspecified location Empire 2 sprays into each nostril once daily 1 bottles 9 Active traZODone (Desyrel) 100 MG tablet Take 1 (one) tablet by mouth at bedtime 3 Active sertraline (Zoloft) 100 MG tablet sertraline 100 mg tablet 3 Active omeprazole (PriLOSEC) 40 MG capsule omeprazole 40 mg capsule,delayed release 3 Active cabergoline (Dostinex) 0.5 MG tablet Take 1 (one) tablet by mouth every 7 days 3 Active ferrous sulfate 325 (65 FE) MG tablet Take 1 (one) tablet by mouth once daily 3 Active folic acid 400 MCG tablet Take 1 (one) tablet by mouth once daily 3 Active spironolactone (Aldactone) 100 MG tablet 3 Active mirabegron ER 24hr (Myrbetriq) 25 MG tablet Take 1 (one) tablet by mouth once daily 30 tablet 11 3 Active docusate sodium (Colace) 100 MG capsule Take 1 (one) capsule by mouth 2 times daily 60 capsule 1 3 Active ibuprofen (Motrin) 600 MG tablet Take 1 (one) tablet by mouth every 6 hours as needed for Pain 40 tablet 1 3 Active oxyCODONE, immediate release, (Roxicodone) 5 MG tabletIndication s:Post-operative state Take 1 (one) tablet by mouth every 6 hours as needed for Pain 10 tablet 3 Active sertraline (Zoloft) 100 MG tablet Take 1 (one) tablet by mouth once daily 3 Active Active Problems Problem Noted Date Diagnosed Date Hyperprolactinemia 03/19/2023 Microprolactinoma 03/19/2023 Low back pain 06/23/2018 Mild intermittent asthma 12/23/2017 Immunizations Immunization Administration Dates Next Due INFLUENZA VACCINE, QUADR. (F LUZONE; FLULAVAL; FLUARIX; AFLURIA QUADRIVALENT; 6MO+), 0.5 ML (IIV4) 12/17/2018 Family History Medical History Relation Name Comments Diabetes - Type 2 Brother Diabetes - Type 2 Father Diabetes - Type 2 Mother Diabetes - Type 2 Paternal Aunt Asthma Neg Hx Autoimmune Disease Neg Hx Bipolar Disorder Neg Hx Cancer - Breast Neg Hx Cancer - Colon Neg Hx Cancer - Other Neg Hx Cancer - Ovarian Neg Hx Cancer - Pancreatic Neg Hx Cancer - Prostate Neg Hx Depression Neg Hx Eczema Neg Hx Hypertension Neg Hx Migraine Neg Hx Osteoporosis Neg Hx Seizures Neg Hx Sudd. <30 Neg Hx Thyroid Disease Neg Hx Ulcerative Colitis Neg Hx Relation Name Status Comments Brother Alive Father Alive Mother Alive Paternal Aunt Social History Tobacco Use Types Packs/Day Years Used Date Smoking Tobacco: Never Smokeless Tobacco: Never Tobacco Cessation:Counseling Given: Not Answered Alcohol Use Standard Drinks/Week Comments No 0 (1 standard drink = 0.6 oz pur e alcohol) AUDIT-C Answer Date Recorded Q1: How often do you have a drink containing alcohol? 4 or more times a week 06/16/2022 Q2: How many drinks containi ng alcohol do you have on a typical day when you are drinking? 1 or 2 Q3: How often do you have si x or more drinks on one occasion? Weekly 06/16/2022 PHQ-2 Answer Date Recorded Patient Health Questionnaire-2 Score 0 03/19/2023 Comments No Sex and Gender Information Value Date Recorded Sex Assigned at Not on file Legal Sex Female 4:46 PM CDT Gender Identity Not on file Sexual Orientation Not on file Last Filed Vital Signs Vital Sign Reading Time Taken Comments Blood Pressure 118/72 03/19/2023 9:48 AM AD COMPOSITOR Pulse 71 03/19/2023 9:48 AM AD COMPOSITOR Temperature 36.3 C (97.3 F) 03/19/2023 9:48 AM AD COMPOSITOR Respiratory Rate 16 06/16/2022 2:53 PM CDT Oxygen Saturation 100% 03/19/2023 9:48 AM AD COMPOSITOR Inhaled Oxygen Concentration - - Weight 98.9 kg (218 lb) 03/19/2023 9:48 AM AD COMPOSITOR Height 165.1 cm (5' 5) 03/19/2023 9:48 AM AD COMPOSITOR Body Mass Index 36.28 03/19/2023 9:48 AM AD COMPOSITOR Plan of Treatment Health Maintenance Due Date Last Done Comments COLOGUARD (AGES 45-75) - COLON CA SCREENING 1978 COLON MONITORING 1978 COLONOSCOPY - COLON CA SCREENING 1978 CT COLONOGRAPHY - COLON CA SCREENING 1978 Colorectal Cancer Screening 1978 FIT - COLON CA SCREENING 1978 FLEX SIG - COLON CA SCREENING 1978 MAMMOGRAM 1978 HIV SCREENING 1993 DTAP/TDAP/TD VACCINES (1 - Tdap) 1997 HEPATITIS B VACCINE (1 of 3 - 19+ 3-dose series) 1997 PNEUMOCOCCAL VACCINE (1 of 2 - PCV) 1997 PAP SMEAR 1999 COVID-19 VACCINE ( season) 2023 02/01/2021, 12/11/2020, 06/11/2020, Additional history exists DEPRESSION SCREENING 04/05/2024 03/19/2023 INFLUENZA VACCINE (#1) 2024 1, 01/03/2019, 12/17/2018 SCREENING FOR DIABETES 03/04/2026 3, 02/04/2023, 06/19/2022, Additional history exists LIPID TESTING 04/27/2027 04/27/2022 ZOSTER VACCINE (1 of 2) 2028 HEPATITIS C SCREENING Completed 04/27/2022 HIB VACCINE Aged Out No longer eligi ble based on patient's age to complete this topic HPV VACCINE Aged Out No longer eligi ble based on patient's age to complete this topic MENINGOCOCCAL (Group B) VACCINE SHARED DECISION-MAKING Aged Out No longer eligible based on patient's age to complete this topic MENINGOCOCCAL GROUPS A/C/Y/W VACCINE Aged Out No longer eligible based on patient's age to [place] [address] [facility] Care Teams Coating Operator Relationship Specialty Start Date End Date Zuri Thomas MD [address] [place] [address] PCP - General Family Medicine 06/16/22
--- OUTSIDE RECORDS SUMMARY | 2024-11-02 07:46 | XMS_ITS | Encounter Summary ---
Author Organization [facility] Address [address] [place] [address] Care Team Providers Care Freight Flagman Name Role Phone Zuri Thomas MD Primary Care Provider Bola Deleon MD Unavailable Encounter Details Date Type Department Care Team (Latest Contact Info) Description 10/18/2024 Action Engine Message Enc [facility] Medical Group Multispecialty Care - [address], [address] [place] [phone] Leticia, [facility] Provider Pre-Op Instructions/Educat ion Social History Tobacco Use Types Packs/Day Years [...] Sex Assigned at Female 06/07/2024 3:09 PM 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 [address] [place] [address] Bogdan Camacho MD 3 [place] [address] 11/15/2024 10:[address] [facility] [place] [address] Bogdan Camacho MD 3 [place] [address] 11/15/2024 2:20 PM CDT Office Visit [facility] Family Medicine - [address] [phone] Zuri Thomas MD [address] [place] [address] 11/28/2024 7:30 AM CDT Hospital Encounter [facility] [place] [address] Bogdan Camacho MD 3 [place] [address] 11/28/2024 7:30 AM CDT - 11/28/2024 12:[address] [place] [address] Bogdan Camacho MD 3 [facility] [place] [address] LUMBAR 4-5, LUMBAR 5- SACRAL 1 ANTERIOR LUMBAR INTERBODY FUSION, INTERNAL FIXATION WITH ANTERIOR LUMBAR PLATE, LUMBAR 4, LUMBAR 5, SACRAL 1 POSTERIOR SPINAL FIXATION, AUTOGRAFT, ALLOGRAFT, BONE MORPHOGENIC PROTEIN 12/12/2024 1:40 PM CDT Office Visit [facility] Multispecialty Care - [facility] [address] [facility], [address] [place] [address] Madelaine Zaragoza APRN 3 [facility] [address] [place] [address] 12/26/2024 3:20 PM CDT Office Visit [facility] Family Medicine [facility] [address] [place] [phone] Zuri Thomas MD [address] [place] [address] Scheduled Procedures Name Priority Associated Diagnoses Date/Ti me FUSION SPINAL ANTERIOR LUMBAR INTERBODY 2 LEVEL SPONDYLOLISTHESIS OF LUMBAR REGION, 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 Author Autogenerat ed Goal Care Plan Autogenerated Problem No Dulce Rivers RN documented as of this encounter Visit Diagnoses Not on filedocumented in this encounter Additional Health Concerns Active Problems Noted Date Diagnosed Date Autogenerated Problem 10/18/2024 Assessment Noted Time PHQ-9 Depression Total Score: 18 06/ 025 8:02 AM CDT documented as of this encounter Care Teams Freight Flagman Relationship Specialty Start Date End Date Zuri Thomas MD [address] [place] [address] PCP - General FAMILY PRACTICE 03/17/22 Bola Deleon MD [address] [address] Referring Physician VASCULAR SURGERY 10/18/24 documented as of this encounter
--- OUTSIDE RECORDS SUMMARY | 2024-11-02 07:46 | XMS_ITS | Clinical Summary ---
Author Organization [facility] Address [address] [place] [address] Care Team Providers Care Chief Petroleum Engineer Name Role Phone Zuri Thomas MD Primary Care Provider [phone] Bola Deleon MD Unavailable Allergies Active Allergy Reactions Criticality Noted Date Comments Cephalexin Hives Medium 11/09/2019 Cephalosporins Hives,Rash,Unknown Medium 11/09/2019 Medications cabergoline (DOSTINEX) 0.5 MG tabletIndications :Pituitary abnormality (HHS/HCC) Take 1 tab weekly 12 tablet 3 3 Active Additional Information Patient not taking.Reason: Other, Reported on 09/13/2024 traZODone (DESYREL) 100 MG tabletIndications :Primary insomnia Take 1 tablet (100 mg total) by mouth nightly at bedtime. 100 tablet 1 3 Active folic acid (FOLVITE) 400 MCG tabletIndications :Anemia due to chronic kidney disease, unspecified CKD stage Take 1 tablet (400 mcg total) by mouth daily. 90 tablet 1 3 Active Additional Information Patient not taking.Reason: Other, Reported on 09/13/2024 ibuprofen (MOTRIN) 600 MG tablet Take 1 tablet (600 mg total) by mouth every 6 (six) hours as needed. 3 Active mirabegron ER (MYRBETRIQ) 25 MG 24 hr tablet Take 1 tablet (25 mg total) by mouth daily. 3 Active spironolactone (ALDACTONE) 100 MG tabletIndications :Pituitary abnormality (HHS/HCC) Take 1 tablet (100 mg total) by mouth daily. 30 tablet 3 Active Additional Information Patient not taking.Reason: Other, Reported on 09/13/2024 fluticasone propionate (FLONASE) 50 MCG/ACT nasal sprayIndications: Non-seasonal allergic rhinitis, unspecified trigger 2 sprays by Nasal route daily. 15.8 mL 3 Active Additional Information Patient not taking.Reason: Other, Reported on 09/13/2024 naproxen (NAPROSYN) 500 MG tabletIndications :Chronic left-sided low back pain without sciatica Take 1 tablet (500 mg total) by mouth as needed. 60 tablet 3 3 Active ferrous sulfate, 65 mg elemental, 325 (65 FE) MG tabletIndications :Iron deficiency anemia secondary to inadequate dietary iron intake Take 1 tablet (325 mg total) by mouth 2 (two) times daily. 180 tablet 1 5 Active albuterol sulfate HFA 108 (90 Base) MCG/ACT inhalerIndication s:Simple chronic bronchitis (CMS/HCC HHS/HCC) USE 2 INHALATIONS EVERY 4 HOURS NEEDED 25.5 g 3 5 Active sertraline (ZOLOFT) 100 MG tabletIndications :Other depression Take 1 tablet (100 mg total) by mouth daily. 30 tablet 11 5 Active omeprazole (PRILOSEC) 40 MG capsuleIndication s:Gastroesophagea l reflux disease without esophagitis Take 1 capsule (40 mg total) by mouth daily. 90 capsule 1 5 Active budesonide-formot vasiliy (SYMBICORT) 160-4.5 MCG/ACT inhalerIndication s:Moderate persistent asthma with status asthmaticus ([facility]/HCC) Inhale 2 puffs into the lungs 2 (two) times daily. 10.2 g 2 5 Active busPIRone (BUSPAR) 7.5 MG tabletIndications :Situational anxiety Take 1 tablet (7.5 mg total) by mouth 2 (two) times daily. 60 tablet 2 5 Active BONE STIMULATOR, DME,Indications:S carmencita instabilities of lumbar region Wear 4 hours daily. Can break up into multiple sessions totaling 4 hours. 1 Device 5 Active Misc. Devices MiscIndications:S carmencita instabilities of lumbar region 1 each by Does not apply route continuous. LSO for continuous wear while ambulating or up in chair. 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[facility]) 04/21/2022 Primary insomnia 04/21/2022 Other depression 04/21/2022 Gastroesophageal reflux disease without esophagi tis 04/21/2022 Non-seasonal allergic rhinitis, unspecified trig sanket 04/21/2022 Simple chronic bronchitis ([facility]) 04/05 Right leg pain 11/09/2019 Lumbar radiculopathy 11/09/2019 Degenerative disc disease, lumbar 11/09/2019 Radiculopathy, lumbar region 11/09/2019 Other intervertebral disc degeneration, lumbar r egion 11/09/2019 Sacroiliitis 11/09/2019 Low back pain 06/23/2018 Mild intermittent asthma ([facility]) 12/23/2017 Dyspnea 11/12/2014 Overview (11/12/2022): Location: None;Severity: Moderate;Progress: Stable;Added By: Chely Sood;Add to Current Problems: YES Pityriasis versicolor 05/22/2014 Overview (11/12/2022): Location: None;Severity: Moderate;Progress: Stable;Added By: Delores Ge;Add to Current Problems: YES Acute bronchitis 02/01/2014 Overview (11/12/2022): Location: None;Severity: Moderate;Progress: Stable;Added By: Chinyere Byrd;Add to Current Problems: YES Acute laryngopharyngitis 01/24/2014 Overview (11/12/2022): Location: None;Severity: Moderate;Progress: Stable;Added By: Russ Maguire;Add to Current Problems: YES Acute sinusitis 01/24/2014 Overview (11/12/2022): Location: None;Severity: Moderate;Progress: Stable;Added By: Tamia Alvarenga;Add to Current Problems: YES Dizziness and giddiness 06/19/2013 Sciatica 03/14/2013 Overview (11/12/2022): Location: None;Severity: Moderate;Progress: Stable;Added By: Russ Maguire;Add to Current Problems: NO Location: Left;Severity: Moderate;Progress: Stable;Added By: Caro Roblero;Add to Current Problems: YES Encounters Date Type Department Care Team Description 11/01/2024 7:50 AM CDT Hospital Encounter [facility] [place] [address] Casey Parham MD Arrived 11/01/2024 Orders Only [facility] [place] [address] Casey Parham MD 11/01/2024 Travel 10/24/2024 Telephone [facility] [address] [facility] [place] [address] Bola Deleon MD Results (VENOUS REFLUX STUDY) 10/23/2024 Telephone [facility] - [facility] [address], [address] [place] [phone] Bogdan Darling MD Surgical Clearance (No cardiac clearance needed) 10/18/2024 Scan VenJuvo SRVCS Scanned, [facility] 10/18/2024 [facility]phone [facility] [address], [address] [place] [address] oBgdan Darling MD Pre-op Surgery/Cosmetic (Pre-Op instructions/educati on) 10/18/2024 [facility] Enc [facility] [address], [address] [place] [phone] [facility] Provider Pre-Op Instructions/Educati on 10/18/2024 [facility]phone [facility] [address], [address] [place] [phone] Bogdan Darling MD Prior Authorization 10/17/2024 [facility] [address], [address] [place] [phone] Bogdan Darling MD Schedule Surgery 10/17/2024 [facility]phone [facility] - [facility] [address], [address] [place] [phone] Bogdan Darling MD Schedule Surgery 10/13/2024 11:15 AM CDT - 10/13/2024 11:59 PM CDT Hospital Encounter [facility] [place] [address] Bogdan Darling MD Discharge Disposition: Home or Self Care (Routine Discharge) 10/12/2024 3:20 PM CDT [facility] - [facility] [address], [address] [place] [phone] Bogdan Darling MD Follow Up (MRI lumbar) 10/12/2024 Travel 10/09/2024 6:22 AM CDT - 10/09/2024 11:59 PM CDT Hospital Encounter [facility] [place] [place] [address] Bola Deleon MD Discharge Disposition: Home or Self Care (Routine Discharge) 10/09/2024 Travel 10/05/2024 Telephone [facility] Family Medicine - [address] [place] [address] Zuri Thomas MD Referral 10/04/2024 Scan HEALTH INFO SRVCS Scanned, [facility] 10/03/2024 9:00 AM CDT - 10/03/2024 11:59 PM CDT Hospital Encounter [facility] [place] [address] Zuri Thomas MD Erickson, Alisa R, PT Discharge Disposition: Home or Self Care (Routine Discharge) 10/03/2024 Travel 09/28/2024 11:30 AM CDT Office Visit [facility] on [address] [address] Bola Deleon MD Varicose Veins 09/28/2024 8:15 AM CDT - 09/28/2024 11:59 PM CDT Hospital Encounter [facility] [place] [address] Zuri Thomas MD Erickson, Alisa R, PT Discharge Disposition: Home or Self Care (Routine Discharge) 09/28/2024 Orders Only [facility] [address] [address] Bola Deleon MD 09/28/2024 Travel 09/21/2024 9:26 AM CDT - 09/21/2024 11:59 PM CDT Hospital Encounter [facility] [place] [address] Zuri Thomas, Nilam Storey, LINUX SECURITY ADMINISTRATOR Discharge Disposition: Home or Self Care (Routine Discharge) 09/21/2024 Travel 09/20/2024 MyChart Message Enc [address] [address] Zuri Thomas MD Vascular surgeon 09/19/2024 7:57 AM CDT - 09/19/2024 11:59 PM CDT Hospital Encounter [facility] [place] [address] Zuri Thomas MD Erickson, Alisa R, PT Discharge Disposition: Home or Self Care (Routine Discharge) 09/19/2024 Travel 09/15/2024 8:24 AM CDT - 09/15/2024 11:59 PM [place] [address] Zuri Thomas MD Myers, Traci R, LINUX SECURITY ADMINISTRATOR Discharge Disposition: Home or Self Care (Routine Discharge) 09/15/2024 Travel 09/13/2024 8:40 AM CDT Office Visit [address] [address] Zuri Thomas MD Swelling (Right leg off and on for past week); Leg Pain (Right leg); Bleeding/Bruising (Unknown bruising) 09/13/2024 Travel 09/12/[address] [address] Zuri Thomas MD Refill Request 09/11/2024 11:00 AM CDT - 09/11/2024 11:59 PM CDT Hospital Encounter [facility] [place] [address] Zuri Thomas MD Lewis, Molly A, LINUX SECURITY ADMINISTRATOR Discharge Disposition: Home or Self Care (Routine Discharge) 09/11/2024 Scan VenJuvo SRVCS Scanned, Doc [facility] 09/11/2024 Telephone [facility] [place] [address] Susanne Knight, JUSTIN Error 09/11/2024 MyChart Message Enc [facility] Medicine - [address] [place] [phone] Zuri Thomas MD Medication 09/11/2024 Travel 09/05/2024 Scan MG HEALTH INFO SRVCS Scanned, Doc [facility] 09/04/2024 4:30 PM CDT - 09/04/2024 11:59 PM CDT Hospital Encounter [facility] [place] [address] Zuri Thomas MD Lewis, Molly A, LINUX SECURITY ADMINISTRATOR Discharge Disposition: Home or Self Care (Routine Discharge) 09/04/2024 Travel 09/01/2024 Scan MG HEALTH INFO SRVCS Scanned, [facility] 08/30/2024 Scan MG HEALTH INFO SRVCS Scanned, Doc [facility] 08/18/[address] [facility] [place] [address] Trudy Rod, PT Called To Cancel Office Appt. 08/16/2024 MyChart Message Enc [facility] - [facility] [address] [facility], [address] [place] [address] Bogdan Darling MD Question /FYI 08/14/2024 6:08 AM CDT - 08/14/2024 11:59 PM CDT Hospital Encounter [facility] [place] [address] Bogdan Darling MD Discharge Disposition: Home or Self Care (Routine Discharge) 08/14/2024 Travel 08/07/2024 4:26 PM CDT - 08/07/2024 11:59 PM CDT Hospital Encounter [facility] [place] [address] Zuri Thomas MD Lewis, Molly A, LINUX SECURITY ADMINISTRATOR Discharge Disposition: Home or Self Care (Routine Discharge) 08/07/2024 Travel 08/04/2024 3:43 PM CDT - 08/04/2024 11:59 PM CDT Hospital Encounter [facility] [place]patient [place] [address] Zuri Thomas MD Erickson, Alisa R, PT Discharge Disposition: Home or Self Care (Routine Discharge) 08/04/2024 Travel 08/03/2024 2:40 PM CDT Office Visit [facility] Multispecialty Care - [address], [address] [place] [phone] Bogdan Darling MD Follow Up (Leg pain f/u) 08/03/2024 Travel from Last 3 Months Immunizations Immunization Administration Dates Next Due Dtp 11/13/1989,,09/19/1979,1979,1978 Influenza (Generic) 01/13/2021,01/03/2019 Influenza Adult (Generic) 12/17/2018,12/17/2018 MMR 12/07/1989 Opv 12/07/1989,,09/19/1979,1979,1978 PFIZER COVID-19 (ORIGINAL FORMULATION, PURPLE CAP) mRNA, LNP-S, PF, 30 MCG/0.3 ML DOSE 02/01/2021,12/11/2020,06/11/2020,2020 Polio Opv (Generic) 12/07/1989, 1,09/19/1979,1979,1978 Rubella (Generic) 11/18/1979 Tdap (Boostrix) 09/05/2021 Tdap (Generic) 05/02/2014 Family History Medical History Relation Comments Diabetes Brother 1 Asthma Brother 2 Heart murmur Diabetes Father Early Hearing Loss Father Heart Disease Father Arthritis Mother Asthma Mother COPD Mother Depression Mother Diabetes Mother Heart Disease Mother Hypertension Mother Vision loss Mother osteoarthritis Mother Cancer Paternal Grandmother Melanoma ca ncer My mother's mom Breast Cancer Sister 1 Breast Cancer Sister 2 Currently in tez motherapy/Double mastectomy/radiation currently Relation Status Comments Brother 1 Alive Brother 2 Father Alive Mother Alive Paternal Grandmother Sister 1 Sister 2 Alive Social History Tobacco Use Types Packs/Day Years Used Date Smoking Tobacco: Never Passive Smoke Exposure: Never Smokeless Tobacco: Never Tobacco Cessation:Counseling Given: No Alcohol Use Standard Drinks/Week Comments Yes 3.3 [...] Sex Assigned at Female 06/07/2024 3:09 PM COSMETIC MANAGER Legal Sex Female 6:41 PM CDT Gender Identity Not on file Sexual Orientation Not on file Occupation Industry Job Start Date Job End Date Not on file Not on file Not on file Not on file Last Filed Vital Signs Vital Sign Reading Time Taken Comments Blood Pressure 138/76 10/12/2024 3:22 PM CDT Pulse 84 10/12/2024 3:22 PM CDT Temperature 36.6 C (97.8 F) 10/12/2024 3:22 PM CDT Respiratory Rate 16 06/23/2024 3:16 PM CDT Oxygen Saturation 99% 10/12/2024 3:22 PM CDT Inhaled Oxygen Concentration - - Weight 91.8 kg (202 lb 4.8 oz) 10/12/2024 3:22 P M CDT Height 160 cm (5' 3) 10/12/2024 3:22 PM CDT Body Mass Index 35.84 10/12/2024 3:22 PM CDT Plan of Treatment Upcoming Encounters Date Type Department Care Team (Latest Contact Info) Description 11/15/2024 9:30 AM CDT Allied Health/Nurse Visit [facility] [address] [facility] [place] [address] Bogdan Darling MD [address] [place] [address] 11/15/2024 10:[address] [place] [address] Bogdan Darling MD [address] [place] [address] 11/15/2024 2:20 PM CDT Office Visit [facility] Family Medicine - [address] [phone] Zuri Thomas MD [address] [place] [address] 11/28/2024 7:30 AM CDT Hospital Encounter [facility] [place] [place] [address] Bogdan Darling MD [address] [place] [address] 11/28/2024 7:30 AM CDT - 11/28/2024 12:44 PM CDT [place] [address] Bogdan Darling MD 3 [place] [address] LUMBAR 4-5, LUMBAR 5- SACRAL 1 ANTERIOR LUMBAR INTERBODY FUSION, INTERNAL FIXATION WITH ANTERIOR LUMBAR PLATE, LUMBAR 4, LUMBAR 5, SACRAL 1 POSTERIOR SPINAL FIXATION, AUTOGRAFT, ALLOGRAFT, BONE MORPHOGENIC PROTEIN 12/12/2024 1:40 PM CDT Office Visit [facility] - [facility] [address], [address] [place] [address] Madelaine Zaragoza, ABIMAEL [address] [facility] [address] [place] [address] 12/26/2024 3:20 PM CDT Office Visit [facility] Family Medicine [facility] [address] [place] [phone] Zuri Thomas MD [address] [place] [address] Scheduled Procedures Name Priority Associated Diagnoses Date/Ti me FUSION SPINAL ANTERIOR LUMBAR INTERBODY 2 LEVEL SPONDYLOLISTHESIS OF LUMBAR REGION, LUMBAR RADICULOPATHY M43.16; M54.16 11/28/2024 7:30 AM CDT Health Maintenance Due Date Last Done Comments Hepatitis B Vaccines (1 of 3 - 19+ 3-dose series) 1997 Pneumococcal Vaccine: Pediatrics (0 to 5 Years) and At-Risk Patients (6 to 49 Years) (1 of 2 - PCV) 1997 Annual Physical 06/07/2025 06/07/2024, 05/06, 04/21/2022 COVID-19 Vaccine (2023- season) 2025 02/01/2021, 12/11/2020, 06/11/2020, Additional history exists Postponed from 12/05/2023 (Patient Refused) Mammogram Screening 03/28/2026 03/28/2024, 11/12/2021, 11/12/2021, Additional history exists Colorectal Cancer Screening FIT-DNA (3 Years) 05/29/2026 05/29/2023, 05/29/2023 DTaP, Tdap and Td Vaccines (4 - Td or Tdap) 09/06/2031 09/05/2021, 05/02/2014, 11/13/1989, Additional history exists Hepatitis C Completed 04/27/2022 PHQ-2 (Physician [place]) Completed 09/13/2024 Meningococcal B Vaccine Aged Out No l onger eligible based on patient's age to complete this topic Meningococcal Vaccine Aged Out No vasiliy sanket eligible based on patient's age to complete this topic RSV Immunizations Under 20 Months Aged Out No longer eligible based on patient's age to complete this topic Goals Goal Patient Goal Type Associated Problems Recent Progress Patient-Stated? 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 Procedure Name Priority Date/Time Associated Diagnosis Comments CORTISOL AM Routine 11/01/2024 8:18 AM CDT Benign neoplasm of pituitary gland ([facility] HHS/HCC) COMPREHENSIVE METABOLIC PANEL Routine 11/01/2024 8:18 AM CDT Benign neoplasm of pituitary gland ([facility] HHS/HCC) FSH, FOLLICLE STIM HORMONE Routine 11/01/2024 8:18 AM CDT Benign neoplasm of pituitary gland ([facility] HHS/HCC) PROLACTIN Routine 11/01/2024 8:18 AM CDT Benign neoplasm of pituitary gland ([facility] HHS/HCC) THYROXINE, FREE (FT4) Routine 11/01/2024 8:18 AM CDT Benign neoplasm of pituitary gland ([facility] HHS/HCC) THYROID STIM HORMONE TSH Routine 11/01/2024 8:18 AM CDT Benign neoplasm of pituitary gland ([facility] HHS/HCC) LH, LUTEINIZING HORMONE Routine 11/01/2024 8:18 AM CDT Benign neoplasm of pituitary gland (CMS/HCC HHS/HCC) XR LUMB SP FLEX+EXT ONLY Routine 10/13/2024 11:29 AM CDT Spondylolisthesis of lumbar region USV VENOUS REFLUX LOW MELCHOR Routine 10/09/2024 7:30 AM CDT Varicose veins of lower extremity with pain, bilateral MRI LUMB SPINE WO CON Routine 08/14/2024 6:57 AM CDT Radiculopathy, lumbar region MG SCREENING W JOSE MELCHOR DIGI Routine 03/28/2024 8:58 AM COSMETIC MANAGER Screening mammogram for breast cancer COLOGUARD (EXACT SCIENCE) Routine 05/29/2023 6:40 AM COSMETIC MANAGER Colon cancer screening HEPATITIS C ANTIBODY Routine 04/27/2022 3:47 PM COSMETIC MANAGER Physical exam, annual from Last 3 Months or Most Recently Relevant to Health Maintenance Results * CORTISOL AM (11/01/2024 8:18 AM CDT) CORTISOL 8AM 8.9 4.0 - 20.0 mcg/dL 11/01/2024 8:59 AM CDT [facility] 11/01/2024 8:18 AM CDT us Casey Parham MD LABORATORY Final Result [facility] [address] [place] [address], [place] [phone] * (ABNORMAL) COMPREHENSIVE METABOLIC PANEL (11/01/2024 8:18 AM CDT) GLUCOSE 87 70 - 99 MG/DL 11/01/2024 9:03 AM CDT [facility] BUN 12 7 - 18 MG/DL 11/01/2024 9:03 AM CDT [facility] CREATININE S/P/B 0.82 0.55 - 1.02 MG/DL 11/01/2024 9:03 AM T [facility] SODIUM S/P/B 139 136 - 145 MMOL/L 11/01/2024 9:03 AM T [facility] POTASSIUM S/P/B 4.2 3.5 - 5.1 MMOL/L 11/01/2024 9:03 AM CDT [facility] CHLORIDE S/P/B 110 97 - 115 MMOL/L 11/01/2024 9:03 AM T [facility] CO2 26.9 21 - 32 MMOL/L 11/01/2024 9:03 AM T [facility] CALCIUM S/P/B 9.1 8.5 - 10.1 MG/DL 11/01/2024 9:03 AM T [facility] BILIRUBIN TOTAL S/P/B 0.4 0.2 - 1.2 MG/DL 11/01/2024 9:03 AM [facility] Comment: THIS ASSAY IS NOT RECOMMENDED FOR PATIENTS UNDERGOING TREATMENT WITH ELTROMBOPAG DUE TO THE POTENTIAL FOR FALSELY ELEVATED RESULTS. TOTAL PROTEIN S/P/B 7.2 6.4 - 8.2 G/DL 11/01/2024 9:03 AM T [facility] ALBUMIN S/P/B 3.5 3.4 - 5.0 G/DL 11/01/2024 9:03 AM T [facility] AST 16 15 - 37 U/L 11/01/2024 9:03 AM [facility] ALT 23 14 - 55 U/L 11/01/2024 9:03 AM T [facility] ALKALINE PHOSPHATASE S/P/B 70 50 - 136 U/L 11/01/2024 9:03 AM CDT [facility] ANION GAP 2.1 2 - 10 MMOL/L 11/01/2024 9:03 AM CDT [facility] BUN CREATININE RATIO 14.6 6 - 26 11/01/2024 9:03 AM CDT [facility] A/G RATIO 0.9(L) 1.0 - 2.0 RATIO 11/01/2024 9:03 AM CDT [facility] GFR ESTIMATE 89(L) >90 ML/MIN/1.7 3 M2 11/01/2024 9:03 AM CDT [facility] Comment: NOTE: eGFR is not calculated for patients <18 years of age or gender unknown. This is an estimated GFR calculation using the new CKD EPI creatinine equation without race and so does not require a correction factor for race. This estimated GFR should not be used for calculating drug doses. 11/01/2024 8:18 AM CDT Casey Parham MD LABORATORY Final Result [facility] [address] [place] [address], [place] [phone] * LH, LUTEINIZING HORMONE (11/01/2024 8:18 AM CDT) Luteinizing Hormone 27.0 MIU/ML 11/01/2024 12:26 PM CDT [facility] Comment: REFERENCE RANGES FOR FEMALES: FOLLICULAR 2.4-12.6 MID-CYCLE 14.0-95.6 LUTEAL 1.0-11.4 POSTMENOPAUSAL 7.7-58.5 11/01/2024 8:18 AM CDT Casey Parham MD LABORATORY Final Result [facility] [address] [place] [id number], * FSH, FOLLICLE STIM HORMONE (11/01/2024 8:18 AM CDT) FSH 31.8 MIU/ML 11/01/2024 12:26 PM CDT [facility] Comment: REFERENCE RANGES FOR FEMALES: FOLLICULAR 3.5-12.5 MID-CYCLE 4.7-21.5 LUTEAL 1.7-7.7 POSTMENOPAUSAL 25.8-134.8 11/01/2024 8:18 AM CDT Casey Parham MD LABORATORY Final Result [facility] [address] [place] [phone], * (ABNORMAL) THYROXINE, FREE (FT4) (11/01/2024 8:18 AM CDT) FREE T4 0.64(L) 0.76 - 1.46 NG/DL 11/01/2024 9:03 AM CDT [facility] 11/01/2024 8:18 AM CDT Casey Parham MD LABORATORY Final Result [facility] [address] [place] [id number], * THYROID STIM HORMONE TSH (11/01/2024 8:18 AM CDT) TSH 2.440 0.358 - 3.74 uIU/ML 11/01/2024 9:03 AM CDT [facility] Comment: HIGH DOSES OF BIOTIN MAY INTERFERE WITH THIS TEST RESULT. CORRELATION TO CLINICAL HISTORY AND PRESENTATION RECOMMENDED. 11/01/2024 8:18 AM CDT Casey Parham MD LABORATORY Final Result [facility] [address] [place] [address], [place] [phone] * PROLACTIN (11/01/2024 8:18 AM CDT) PROLACTIN 11.6 NG/ML 11/01/2024 12:26 PM CDT [facility] Comment:FEMALE REFERENCE RAN GE (NON-): 4.8-23.3 11/01/2024 8:18 AM CDT Casey Parham MD LABORATORY Final Result [facility] [address] [place] [address], [place] [phone] * XR LUMB SP FLEX+EXT ONLY (10/13/2024 11:29 AM CDT) Anatomical Region Laterality Modality Spine Radiographic Rebekah ging 10/13/2024 3:08 PM CDT Impressions 10/13/2024 3:10 PM CDT IMPRESSION: 1. No acute abnormality identified. 2. Degenerative changes as described. 3. Anterolisthesis L4 on L5 on flexion view which normalizes on extension view. Ordered By: BOGDAN DARLING Interpreted By: Delano Sanchez MD, 10/13/2024 3:08 PM Narrative 10/13/2024 3:10 PM CDT [facility] [address] [place], [place] [address] Examination: XR LUMB SP FLEX+EXT ONLY Exam time: 10/13/2024 11:21 AM Clinical history: Chronic low back pain. No known injury. Rule out dynamic instability. Comparison: 05/17/2023 upright AP, lateral, and lumbosacral views Technique: Upright lateral flexion and extension views Findings: There is mild to moderate decrease intervertebral disc height at the L3-4 and L4-5 levels and moderate decrease intervertebral disc height L5-S1 level. Mild anterior vertebral body endplate spurring L4-5 and L5-S1 levels. Moderate facet hypertrophic change L4-5 level. On the flexion view, there is approximately 5 mm anterolisthesis of L4 on L5. This normalizes on the extension view. There are no other areas of anterolisthesis or retrolisthesis. Procedure Note Delano Sanchez MD - 10/13/2024 [facility] [address] [place], [place] [address] Examination: XR LUMB SP FLEX+EXT ONLY Exam time: 10/13/2024 11:21 AM Clinical history: Chronic low back pain. No known injury. Rule out dynamicinstability. Comparison: 05/17/2023 upright AP, lateral, and lumbosacral views Technique: Upright lateral flexion and extension views Findings: There is mild to moderate decrease intervertebral disc height atthe L3-4 and L4-5 levels and moderate decrease intervertebral disc heightL5-S1 level. Mild anterior vertebral body endplate spurring L4-5 and L5-X2pkmexy. Moderate facet hypertrophic change L4-5 level. On the flexionview, there is approximately 5 mm anterolisthesis of L4 on L5. Thisnormalizes on the extension view. There are no other areas ofanterolisthesis or retrolisthesis. IMPRESSION: 1. No acute abnormality identified. 2. Degenerative changes as described. 3. Anterolisthesis L4 on L5 on flexion view which normalizes on extensionview. Ordered By: BOGDAN DARLING Interpreted By: Delano Sanchez MD, 10/13/2024 3:08 PM Bogdan Darling MD GENERAL IMAGING Final Resul t * USV VENOUS REFLUX LOW MELCHOR (10/09/2024 7:30 AM CDT) Anatomical Region Laterality Modality Extremity Vascular Ultraso und 10/09/2024 6:38 AM CDT Narrative 10/09/2024 11:55 AM CDT VENOUS DUPLEX IMAGING BILATERAL LOWER EXTREMITY VASCULAR LAB Pat.Name: TERE BRUCE Pat.ID: [id number] .Date: 10/09/2024 Exam Time: 6:38:00 AM Study Type:ISH VS Venous Duplex Legs MELCHOR Age: 1 1980,44Y Sex: F Sonogrphr: Vipul Sevilla RVT Pat. Stat.:Outpatient History / Clinical:painful varicosities per ordering provider Procedures: Jose scale, Color Doppler imaging, Doppler Spectral Analysis Race: B ++++++++++++++++++++++++++++++++++++ SUMMARY: ++++++++++++++++++++++++++++++++++++ The deep veins are patent bilaterally from groin to calf. No reflux > 1 second duration is seen in the deep or superficial veins. Reflux measurements obtained with patient supine in steep reverse Trendelenberg. CONCLUSION: No evidence of venous reflux in the bilateral lower extremities. ++++++++++++++++++++++++++++++++++++ MEASUREMENTS: ++++++++++++++++++++++++++++++++++++ REFLUX Right CFV CFV 0 sec Right Mid FV Mid FV 0 sec Right Pop V Pop V 0 sec Right SFJ GSV SFJ 7.1 mm GSV SFJ 0 sec Right Prox Thigh GSV Prox Thigh 3.1 mm GSV Prox Thigh 0 sec Right Dist Thigh/AK GSV Dist Thigh 3.8 mm GSV Dist Thigh 0 sec Right Prox SSV Prox 2.3 mm SSV Prox 0 sec Right Prox Calf GSV Prox Calf 3.4 mm GSV Prox Calf 0 sec Left CFV CFV 0 sec Left Mid FV Mid FV 0 sec Left Pop V Pop V 0 sec Left SFJ GSV SFJ 6.4 mm GSV SFJ 0 sec Left Prox Thigh GSV Prox Thigh 4.4 mm GSV Prox Thigh 0 sec Left Dist Thigh/AK GSV Dist Thigh 3.4 mm GSV Dist Thigh 0 sec Left Prox Calf GSV Prox Calf 3.6 mm GSV Prox Calf 0 sec Left Prox SSV Prox 1.2 mm SSV Prox 0 sec <Electronic Signature> 10/09/2024 11:55 AM Radha Khan M.D. Procedure Note Radha Khan MD - 10/09/2024 VENOUS DUPLEX IMAGING BILATERAL LOWER EXTREMITY VASCULAR LAB Pat.Name: TERE BRUCE Pat.ID: [id number] .Date: 10/09/2024 Exam Time: 6:38:00 AM Study Type:ISH VS Venous Duplex Legs MELCHOR Age: 1 1980,44Y Sex: F Sonogrphr: Vipul Sevilla RVT Pat. Stat.:Outpatient History / Clinical:painful varicosities per ordering provider Procedures: Jose scale, Color Doppler imaging, Doppler Spectral Analysis Race: B ++++++++++++++++++++++++++++++++++++ SUMMARY: ++++++++++++++++++++++++++++++++++++ The deep veins are patent bilaterally from groin to calf. No reflux > 1 second duration is seen in the deep or superficial veins. Reflux measurements obtained with patient supine in steep reverse Trendelenberg. CONCLUSION: No evidence of venous reflux in the bilateral lower extremities. ++++++++++++++++++++++++++++++++++++ MEASUREMENTS: ++++++++++++++++++++++++++++++++++++ REFLUX Right CFV CFV 0 sec Right Mid FV Mid FV 0 sec Right Pop V Pop V 0 sec Right SFJ GSV SFJ 7.1 mm GSV SFJ 0 sec Right Prox Thigh GSV Prox Thigh 3.1 mm GSV Prox Thigh 0 sec Right Dist Thigh/AK GSV Dist Thigh 3.8 mm GSV Dist Thigh 0 sec Right Prox SSV Prox 2.3 mm SSV Prox 0 sec Right Prox Calf GSV Prox Calf 3.4 mm GSV Prox Calf 0 sec Left CFV CFV 0 sec Left Mid FV Mid FV 0 sec Left Pop V Pop V 0 sec Left SFJ GSV SFJ 6.4 mm GSV SFJ 0 sec Left Prox Thigh GSV Prox Thigh 4.4 mm GSV Prox Thigh 0 sec Left Dist Thigh/AK GSV Dist Thigh 3.4 mm GSV Dist Thigh 0 sec Left Prox Calf GSV Prox Calf 3.6 mm GSV Prox Calf 0 sec Left Prox SSV Prox 1.2 mm SSV Prox 0 sec <Electronic Signature> 10/09/2024 11:55 AM Radha Khan M.D. Bola Deleon MD VAS Final Result * MRI LUMB SPINE WO CON (08/14/2024 6:57 AM CDT) Anatomical Region Laterality Modality Spine Magnetic Resonan ce 08/15/2024 4:20 PM CDT Impressions 08/15/2024 4:29 PM CDT IMPRESSION: 1) Degenerative changes more pronounced at the mid and lower lumbar levels including multilevel facet disease. 2. Disc bulges at L4-5 and L5/S1 levels extending into the neural foramen with jmcy-kv-flgubkxn foraminal stenosis at these levels slightly worse at L4-5. 3. Mild narrowing of the central canal at L4-5 and L5/S1 levels including the lateral recesses as described. Ordered By: BOGDAN DARLING Interpreted By: Zen Romeo MD, 08/15/2024 4:20 PM Narrative 08/15/2024 4:29 PM CDT [address] [address] Examination: MRI LUMB SPINE WO CON Exam time: 08/14/2024 6:41 AM Clinical history: Low back pain radiating down to both legs. Heaviness in the right leg. Comparison: Previous studies are MRI lumbar spine from April 2023. Technique: Imaging is routine with MRI lumbar spine without contrast. Findings: There is no malalignment. The height of the lumbar vertebra is well maintained. In the lumbar vertebra there are no acute signal changes. There are no pars defects. In the lower thoracic levels no significant disc lesions. No stenosis. There is mild scoliosis. L1-L2: The disc spaces well maintained. No significant disc lesions. Posterior elements of unremarkable. There is no significant stenosis. L2-3: Well-maintained disc space with essentially normal signal with no significant disc abnormalities. There is fedq-zy-mjolmtsc hypertrophy of the facets and mild thickening of the ligaments. There is mild narrowing of the left neural foramen. L3-4: No significant disc lesions. There is tnsj-cu-vjsobrjx hypertrophy of the posterior elements. No significant stenosis of the central canal. Borderline size of the neural foramen. L4-5: Degenerative changes with at least moderate hypertrophy of the posterior elements. There is diffuse disc bulge deforming the dural sac and extending into the neural foramen. There is ivto-ws-nztzhwno foraminal stenosis on both sides. Foraminal compromise appears slightly worse on the left. There is also mild to moderate narrowing of the lateral recesses and mild narrowing of the central canal. L5/S1: Degenerative changes with mild facet disease and moderate diffuse bulge. There is narrowing of the neural foramen of mild degree slightly worse on the left. The size of the central canal is mildly narrowed. Due to disc bulge which is slightly more prominent right to the midline and there is mild narrowing of the lateral recesses slightly worse on the right as seen on axial image numbered 39. As compared to prior MRI the appearances are mostly chronic. Within the dural sac no abnormal signal. The distal spinal cord is unremarkable. The visualized paraspinal soft tissues demonstrate no acute abnormalities. Procedure Note Zen Romeo MD - 08/15/2024 [facility] [address] [place], [place] [address] Examination: MRI LUMB SPINE WO CON Exam time: 08/14/2024 6:41 AM Clinical history: Low back pain radiating down to both legs. Heaviness inthe right leg. Comparison: Previous studies are MRI lumbar spine from April 2023. Technique: Imaging is routine with MRI lumbar spine without contrast. Findings: There is no malalignment. The height of the lumbar vertebra iswell maintained. In the lumbar vertebra there are no acute signal changes.There are no pars defects. In the lower thoracic levels no significant disc lesions. No stenosis.There is mild scoliosis. L1-L2: The disc spaces well maintained. No significant disc lesions.Posterior elements of unremarkable. There is no significant stenosis. L2-3: Well-maintained disc space with essentially normal signal with nosignificant disc abnormalities. There is povc-bx-hgufktph hypertrophy ofthe facets and mild thickening of the ligaments. There is mild narrowingof the left neural foramen. L3-4: No significant disc lesions. There is bygr-rz-rtobmlvh hypertrophyof the posterior elements. No significant stenosis of the central canal.Borderline size of the neural foramen. L4-5: Degenerative changes with at least moderate hypertrophy of theposterior elements. There is diffuse disc bulge deforming the dural sacand extending into the neural foramen. There is nbjf-er-xrxvcyex foraminalstenosis on both sides. Foraminal compromise appears slightly worse on theleft. There is also mild to moderate narrowing of the lateral recesses andmild narrowing of the central canal. L5/S1: Degenerative changes with mild facet disease and moderate diffusebulge. There is narrowing of the neural foramen of mild degree slightlyworse on the left. The size of the central canal is mildly narrowed. Dueto disc bulge which is slightly more prominent right to the midline andthere is mild narrowing of the lateral recesses slightly worse on theright as seen on axial image numbered 39. As compared to prior MRI the appearances are mostly chronic. Within the dural sac no abnormal signal. The distal spinal cord isunremarkable. The visualized paraspinal soft tissues demonstrate no acuteabnormalities. IMPRESSION: 1) Degenerative changes more pronounced at the mid and lower lumbar levelsincluding multilevel facet disease. 2. Disc bulges at L4-5 and L5/S1 levels extending into the neural foramenwith ypqo-dn-rkkkycvj foraminal stenosis at these levels slightly worse atL4-5. 3. Mild narrowing of the central canal at L4-5 and L5/S1 levels includingthe lateral recesses as described. Ordered By: BOGDAN DARLING Interpreted By: Zen Romeo MD, 08/15/2024 4:20 PM Bogdan Darling MD MRI Final Resul t * MG SCREENING W JOSE MELCHOR DIGI (03/28/2024 8:58 AM COSMETIC MANAGER) Anatomical Region Laterality Modality Breast Bilateral Mammography 03/28/2024 10:3 2 AM COSMETIC MANAGER Impressions 03/28/2024 10:35 AM COSMETIC MANAGER IMPRESSION: No suspicious mammographic findings. Recommendation: 1. Routine Screening, Bilateral Assessment: ACR BI-RADS 1 - NEGATIVE Ordered By: ZURI THOMAS Interpreted By: Bola Wagner MD, 03/28/2024 10:32 AM Narrative 03/28/2024 10:35 AM COSMETIC MANAGER [facility] [address] [place] [address] Examination: Screening bilateral mammogram Exam Date: 03/28/2024 8:41 AM Clinical history: Routine screening. Family history of breast cancer in her sister. Comparison: 11/12/2021 Technique: Digital screening mammography of both breasts was performed. Breast tomosynthesis acquisitions were obtained and reviewed. This study was read with the assistance of a computer-aided detection system. Tissue density: There are scattered areas of fibroglandular density. Findings: No suspicious masses, malignant appearing calcifications, skin thickening or other abnormalities are present. No significant change from the prior exam. us Zuri Thomas MD MAMMO Final Result * COLOGUARD (boarding pass SCIENCE) (05/29/2023 6:40 AM COSMETIC MANAGER) COLOGUARD RESULT Negative Negative [facility] (CLIA #:[id number]) Comment: NEGATIVE TEST RESULT. A negative Cologuard result indicates a low likelihood that a colorectal cancer (CRC) or advanced adenoma (adenomatous polyps with more advanced pre-malignant features) is present. The chance that a person with a negative Cologuard test has a colorectal cancer is less than 1 in 1500 (negative predictive value >99.9%) or has an advanced adenoma is less than 5.3% (negative predictive value 94.7%). These data are based on a prospective cross-sectional study of 10,000 individuals at average risk for colorectal cancer who were screened with both Cologuard and colonoscopy. (Evan Motley et al, N Engl J Med 2014;370(14):8016-2693) The normal value (reference range) for this assay is negative. COLOGUARD RE-SCREENING RECOMMENDATION: Periodic colorectal cancer screening is an important part of preventive healthcare for asymptomatic individuals at average risk for colorectal cancer. Following a negative Cologuard result, the [place] [employer] and U.S. Multi-Society Task Force screening guidelines recommend a Cologuard re-screening interval of 3 years. References: [place] [employer] Guideline for Colorectal Cancer Screening: https://www.cancer.org/cancer/wgsky-jgvwkl-okeuhy/opmdxitsy-sxnvsuhqe-lkkqpxk/ac s-rec ommendations.html.; Sergio DINH, Mona COWART, Monica WhiteK, Colorectal Cancer Screening: Recommendations for Physicians and Patients from the U.S. Multi-Society Task Force on Colorectal Cancer Screening , Am J Gastroenterology 2017; 112:8686-5159. TEST DESCRIPTION: Composite algorithmic analysis of stool DNA-biomarkers with hemoglobin immunoassay. Quantitative values of individual biomarkers are not reportable and are not associated with individual biomarker result reference ranges. Cologuard is intended for colorectal cancer screening of adults of either sex, 45 years or older, who are at average-risk for colorectal cancer (CRC). Cologuard has been approved for use by the U.S. FDA. The performance of Cologuard was established in a cross sectional study of average-risk adults aged 50-84. Cologuard performance in patients ages 45 to 49 years was estimated by sub-group analysis of near-age groups. Colonoscopies performed for a positive result may find as the most clinically significant lesion: colorectal cancer [4.0%], advanced adenoma (including sessile serrated polyps greater than or equal to 1cm diameter) [20%] or non- advanced adenoma [31%]; or no colorectal neoplasia [45%]. These estimates are derived from a prospective cross-sectional screening study of 10,000 individuals at average risk for colorectal cancer who were screened with both Cologuard and colonoscopy. (Evan Boswell al, N Engl J Med 2014;370(14):4345-1216.) Cologuard may produce a false negative or false positive result (no colorectal cancer or precancerous polyp present at colonoscopy follow up). A negative Cologuard test result does not guarantee the absence of CRC or advanced adenoma (pre-cancer). The current Cologuard screening interval is every 3 years. ([place] [employer] and U.S. Multi-Society Task Force). Cologuard performance data in a 10,000 patient pivotal study using colonoscopy as the reference method can be accessed at the following location: www.[employer]/results. Additional description of the Cologuard test process, warnings and precautions can be found at www.[employer].com. STOOL STOOL SPECIMEN / Unknown 05/29/2023 6:40 AM COSMETIC MANAGER 05/30/2023 6:38 PM COSMETIC MANAGER us Zuri Thomas MD BODY FLUIDS AND STOOLS ORDERABLE S Final Result [employer] [facility] [address] [place] [address], [employer] (CLIA #:[id number]) [address] [place] [address] * HEPATITIS C ANTIBODY (04/27/2022 3:47 PM COSMETIC MANAGER) HEPATITIS C AB NON-REACTI VE NON-REACTI VE 04/27/2022 5:34 PM COSMETIC MANAGER [facility] 04/27/2022 3:47 PM COSMETIC MANAGER us Zuri Thomas MD LABORATORY Final Result [facility] [address] [place] [address], from Last 3 Months or Most Recently Relevant to Health Maintenance Additional Health Concerns Active Problems Noted Date Diagnosed Date Autogenerated Problem 10/18/2024 Insurance [facility] Care Teams Chief Petroleum Engineer Relationship Specialty Start Date End Date Zuri Thomas MD [address] [place] [address] PCP - General FAMILY PRACTICE 03/17/22 Bola Deleon MD [facility]. [address] [place] [address] Referring Physician VASCULAR SURGERY 10/18/24
--- OUTSIDE RECORDS SUMMARY | 2024-11-02 07:46 | XMS_ITS | Encounter Summary ---
Author Organization [facility] Address [address] [place] [address] Care Team Providers Care Bankruptcy Attorney Name Role Phone Zuri Thomas MD Primary Care Provider [phone] Bola Deleon MD Unavailable Encounter Details Date Type Department Care Team (Late st Contact Info) Description 11/01/2024 7:50 AM CDT Hospital Encounter [facility] [place] [address] Casey Parham MD [address] [place] [address] Arrived Social History Tobacco Use Types Packs/Day Years [...] Sex Assigned at Female 06/07/2024 3:09 PM CLINIC SUPERVISOR Legal Sex Female 6:41 PM CDT Gender Identity Not on file Sexual Orientation Not on file Occupation Industry Job Start Date Job End Date Not on file Not on file Not on file Not on file documented as of this encounter Plan of Treatment Upcoming Encounters Date Type Department Care Team (Latest Contact Info) Description 11/15/2024 9:30 AM CDT Allied Health/Nurse Visit [facility] Care - [place] [facility] [address] [place] [address] Bogdan Camacho MD 3 [place] [address] 11/15/2024 10:[address] [place] [address] Bogdan Camacho MD 3 [place] [address] 11/15/2024 2:20 PM CDT Office Visit [facility] Family Medicine - [address] [phone] Zuri Thomas MD [address] [place] [address] 11/28/2024 7:30 AM CDT Hospital Encounter [facility] [place] [address] Bogdan Camacho MD 3 [place] [address] 11/28/2024 7:30 AM CDT - 11/28/2024 12:44 PM CDT Surgery [facility] [place] [address] Bogdan Camacho MD 3 [place] [address] LUMBAR 4-5, LUMBAR 5- SACRAL 1 ANTERIOR LUMBAR INTERBODY FUSION, INTERNAL FIXATION WITH ANTERIOR LUMBAR PLATE, LUMBAR 4, LUMBAR 5, SACRAL 1 POSTERIOR SPINAL FIXATION, AUTOGRAFT, ALLOGRAFT, BONE MORPHOGENIC PROTEIN 12/12/2024 1:40 PM CDT Office Visit [facility] Multispecialty Care - [facility] 3 [facility], [address] [place] [address] Madelaine Zaragoza APRN 3 [facility] [address] [place] [address] 12/26/2024 3:20 PM CDT Office Visit [facility] Medical [facility] Family Medicine [facility] [address] [place] [phone] Zuri Thomas MD [address] [place] [address] Pending Results Name Type Priority Associated Diagnoses Date /Time SOMATOMEDIN IGF-I Lab Routine Benign neoplasm of pituitary gland ([facility]) 11/01/2024 8:18 AM CDT GROWTH HORMONE,HGH,SOMATOTROPI Lab Routine Benign neoplasm of pituitary gland ([facility]) 11/01/2024 8:18 AM CDT ACTH Lab Routine Benign neoplasm of pituitary gland ([facility]) 11/01/2024 8:18 AM CDT Scheduled Orders Name Type Priority Associated Diagnoses Orde r Schedule SOMATOMEDIN IGF-I Lab Routine Benign neoplasm of pituitary gland ([facility]) Once for 1 Occurrences starting 11/01/2024 until 11/01/2024 GROWTH HORMONE,HGH,SOMATOTROPI Lab Routine Benign neoplasm of pituitary gland (CMS/HCC HHS/HCC) Once for 1 Occurrences starting 11/01/2024 until 11/01/2024 ACTH Lab Routine Benign neoplasm of pituitary gland (CMS/HCC HHS/HCC) Once for 1 Occurrences starting 11/01/2024 until 11/01/2024 Scheduled Procedures Name Priority Associated Diagnoses Date/Ti me FUSION SPINAL ANTERIOR LUMBAR INTERBODY 2 LEVEL SPONDYLOLISTHESIS OF LUMBAR REGION, 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 Author Autogenerat ed Goal Care Plan Autogenerated Problem No Dulce Rivers RN documented as of this encounter Procedures Procedure Name Priority Date/Time Associated Diagnosis Comments CORTISOL AM Routine 11/01/2024 8:18 AM CDT Benign neoplasm of pituitary gland (CMS/HCC HHS/HCC) COMPREHENSIVE METABOLIC PANEL Routine 11/01/2024 8:18 AM CDT Benign neoplasm of pituitary gland (CMS/HCC HHS/HCC) LH, LUTEINIZING HORMONE Routine 11/01/2024 8:18 AM CDT Benign neoplasm of pituitary gland (CMS/HCC HHS/HCC) FSH, FOLLICLE STIM HORMONE Routine 11/01/2024 8:18 AM CDT Benign neoplasm of pituitary gland (CMS/HCC HHS/HCC) THYROXINE, FREE (FT4) Routine 11/01/2024 8:18 AM CDT Benign neoplasm of pituitary gland (CMS/HCC HHS/HCC) THYROID STIM HORMONE TSH Routine 11/01/2024 8:18 AM CDT Benign neoplasm of pituitary gland (CMS/HCC HHS/HCC) PROLACTIN Routine 11/01/2024 8:18 AM CDT Benign neoplasm of pituitary gland (CMS/HCC HHS/HCC) documented in this encounter Results * CORTISOL AM (11/01/2024 8:18 AM CDT) CORTISOL 8AM 8.9 4.0 - 20.0 mcg/dL 11/01/2024 8:59 AM CDT [facility] 11/01/2024 8:18 AM CDT Casey Parham MD LABORATORY Final Result [facility] [address] [place] [address], * (ABNORMAL) COMPREHENSIVE METABOLIC PANEL (11/01/2024 8:18 AM CDT) GLUCOSE 87 70 - 99 MG/DL 11/01/2024 9:03 AM CDT [facility] BUN 12 7 - 18 MG/DL 11/01/2024 9:03 AM CDT [facility] CREATININE S/P/B 0.82 0.55 - 1.02 MG/DL 11/01/2024 9:03 AM CDT [facility] SODIUM S/P/B 139 136 - 145 MMOL/L 11/01/2024 9:03 AM CDT [facility] POTASSIUM S/P/B 4.2 3.5 - 5.1 MMOL/L 11/01/2024 9:03 AM CDT [facility] CHLORIDE S/P/B 110 97 - 115 MMOL/L 11/01/2024 9:03 AM CDT [facility] CO2 26.9 21 - 32 MMOL/L 11/01/2024 9:03 AM CDT [facility] CALCIUM S/P/B 9.1 8.5 - 10.1 MG/DL 11/01/2024 9:03 AM CDT [facility] BILIRUBIN TOTAL S/P/B 0.4 0.2 - 1.2 MG/DL 11/01/2024 9:03 AM CDT [facility] Comment: THIS ASSAY IS NOT RECOMMENDED FOR PATIENTS UNDERGOING TREATMENT WITH ELTROMBOPAG DUE TO THE POTENTIAL FOR FALSELY ELEVATED RESULTS. TOTAL PROTEIN S/P/B 7.2 6.4 - 8.2 G/DL 11/01/2024 9:03 AM T [facility] ALBUMIN S/P/B 3.5 3.4 - 5.0 G/DL 11/01/2024 9:03 AM T [facility] AST 16 15 - 37 U/L 11/01/2024 9:03 AM T [facility] ALT 23 14 - 55 U/L 11/01/2024 9:03 AM T [facility] ALKALINE PHOSPHATASE S/P/B 70 50 - 136 U/L 11/01/2024 9:03 AM T [facility] ANION GAP 2.1 2 - 10 MMOL/L 11/01/2024 9:03 AM T [facility] BUN CREATININE RATIO 14.6 6 - 26 11/01/2024 9:03 AM T [facility] A/G RATIO 0.9(L) 1.0 - 2.0 RATIO 11/01/2024 9:03 AM T [facility] GFR ESTIMATE 89(L) >90 ML/MIN/1.7 3 M2 11/01/2024 9:03 AM T [facility] Comment: NOTE: eGFR is not calculated for patients <18 years of age or gender unknown. This is an estimated GFR calculation using the new CKD EPI creatinine equation without race and so does not require a correction factor for race. This estimated GFR should not be used for calculating drug doses. 11/01/2024 8:18 AM CDT us Casey Parham MD LABORATORY Final Result [facility] [address] [place] [address], * FSH, FOLLICLE STIM HORMONE (11/01/2024 8:18 AM CDT) FSH 31.8 MIU/ML 11/01/2024 12:26 PM CDT [facility] Comment: REFERENCE RANGES FOR FEMALES: FOLLICULAR 3.5-12.5 MID-CYCLE 4.7-21.5 LUTEAL 1.7-7.7 POSTMENOPAUSAL 25.8-134.8 11/01/2024 8:1 8 AM CDT Casey Parham MD LABORATORY Final Result Performing Organization Address City/[facility] Co de Phone Number [facility] [address] [place] [address], * PROLACTIN (11/01/2024 8:18 AM CDT) PROLACTIN 11.6 NG/ML 11/01/2024 12:26 PM CDT [facility] Comment:FEMALE REFERENCE RAN GE (NON-): 4.8-23.3 11/01/2024 8:18 AM CDT Casey Parham MD LABORATORY Final Result [facility] [address] [place] [address], * (ABNORMAL) THYROXINE, FREE (FT4) (11/01/2024 8:18 AM CDT) FREE T4 0.64(L) 0.76 - 1.46 NG/DL 11/01/2024 9:03 AM CDT [facility] 11/01/2024 8:18 AM CDT Casey Parham MD LABORATORY Final Result [facility] [address] [place] [address], [place] [phone] * THYROID STIM HORMONE TSH (11/01/2024 8:18 AM CDT) TSH 2.440 0.358 - 3.74 uIU/ML 11/01/2024 9:03 AM CDT [facility] Comment: HIGH DOSES OF BIOTIN MAY INTERFERE WITH THIS TEST RESULT. CORRELATION TO CLINICAL HISTORY AND PRESENTATION RECOMMENDED. 11/01/2024 8:18 AM CDT Casey Parham MD LABORATORY Final Result Performing Organization Address [facility] Co de Phone Number [facility] [address] [place] [address], [place] [phone] * LH, LUTEINIZING HORMONE (11/01/2024 8:18 AM CDT) Luteinizing Hormone 27.0 MIU/ML 11/01/2024 12:26 PM CDT [facility] Comment: REFERENCE RANGES FOR FEMALES: FOLLICULAR 2.4-12.6 MID-CYCLE 14.0-95.6 LUTEAL 1.0-11.4 POSTMENOPAUSAL 7.7-58.5 11/01/2024 8:18 AM CDT Casey Parham MD LABORATORY Final Result Performing Organization Address City/[facility]/ZIP Co de Phone Number [facility] [address] [place], [place] [address] [phone] documented in this encounter Visit Diagnoses Diagnosis Benign neoplasm of pituitary gland (CMS/HCC HHS/HCC) Benign neoplasm of pituitary gland and craniopharyngeal duct (pouch) documented in this encounter Additional Health Concerns Active Problems Noted Date Diagnosed Date Autogenerated Problem 10/18/2024 Assessment Noted Time PHQ-9 Depression Total Score: 18 025 8:02 AM CDT documented as of this encounter Care Teams Bankruptcy Attorney Relationship Specialty Start Date End Date Zuri Thomas MD [address] [place] [address] PCP - General FAMILY PRACTICE 03/17/22 Bola Deleon MD [address] [address] Referring Physician VASCULAR SURGERY 10/18/24 documented as of this encounter
--- OUTSIDE RECORDS SUMMARY | 2024-11-02 07:46 | XMS_ITS | Encounter Summary ---
Author Organization [facility] Address [address] [place] [address] Care Team Providers Care Setup Technician Name Role Phone Zuri Thomas MD Primary Care Provider [phone] Bola Deleon MD Unavailable Encounter Details Date Type Department Care Team (Late st Contact Info) Description 02/09/2024 [employer] Message Enc [facility] Medical Group Family Medicine [facility] [address] [place] [address] Zuri Thomas MD [address] [place] [address] Ron Social History Tobacco Use Types Packs/Day Years Used Date Smoking Tobacco: Never Smokeless Tobacco: Never Alcohol Use Standard Drinks/Week Comments Yes 1.7 (1 standard drink = 0.6 oz p ure alcohol) Special occasions PHQ-2 Answer Date Recorded Patient Health Questionnaire-2 Score 2 08/03/2023 Exercise Vital Sign Answer Date Recorde d [...] Sex Assigned at Female 06/07/2024 3:09 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 Legal Sex Female 6:41 PM CDT Gender Identity Not on file Sexual Orientation Not on file Occupation Industry Job Start Date Job End Date Not on file Not on file Not on file Not on file documented as of this encounter Plan of Treatment Upcoming Encounters Date Type Department Care Team (Latest Contact Info) Description 11/15/2024 9:30 AM CDT Allied Health/Nurse Visit [facility] [address] [facility], [address] [place] [address] Bogdan Camacho MD 3 [facility] [place] [address] 11/15/2024 10:[address] [place] [address] Bogdan Camacho MD 3 [place] [address] 11/15/2024 2:20 PM CDT Office Visit [facility] Family Medicine - [address] [phone] Zuri Thomas MD [address] [place] [address] 11/28/2024 7:30 AM CDT Hospital Encounter [facility] [place] [address] Bogdan Camacho MD 3 [place] [address] 11/28/2024 7:30 AM CDT - 11/28/2024 12:[address] [facility] [place] [address] Bogdan Camacho MD 3 [facility] [place] [address] LUMBAR 4-5, LUMBAR 5- SACRAL 1 ANTERIOR LUMBAR INTERBODY FUSION, INTERNAL FIXATION WITH ANTERIOR LUMBAR PLATE, LUMBAR 4, LUMBAR 5, SACRAL 1 POSTERIOR SPINAL FIXATION, AUTOGRAFT, ALLOGRAFT, BONE MORPHOGENIC PROTEIN 12/12/2024 1:40 PM CDT Office Visit [facility] - [facility] 3 [facility], [address] [place] [address] Madelaine Zaragoza APRN 3 [facility] [address] [place] [address] 12/26/2024 3:20 PM CDT Office Visit [facility] Family Medicine [facility] [address] [place] [address] Zuri Thomas MD [facility] [place] [address] Scheduled Procedures Name Priority Associated Diagnoses Date/Ti me FUSION SPINAL ANTERIOR LUMBAR INTERBODY 2 LEVEL SPONDYLOLISTHESIS OF LUMBAR REGION, 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 [place] [address] [place] [address] Referring Physician VASCULAR SURGERY 10/18/24 documented as of this encounter
--- OUTSIDE RECORDS SUMMARY | 2024-11-02 07:46 | XMS_ITS | Encounter Summary ---
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 Legal Sex Female 6:41 PM CDT Gender Identity Not on file Sexual Orientation Not on file Occupation Industry Job Start Date Job End Date Not on file Not on file Not on file Not on file documented as of this encounter Plan of Treatment Upcoming Encounters Date Type Department Care Team (Latest Contact Info) Description 11/15/2024 9:30 AM CDT Allied Health/Nurse Visit [facility] [address] [facility] [address] [place] [address] Bogdan Camacho MD 3 [place] [address] 11/15/2024 10:00 AM CDT Appointment [facility] [place] [address] Bogdan Camacho MD 3 [place] [address] 11/15/2024 2:20 PM CDT Office Visit [facility] Medical Group Family Medicine [address] [phone] Zuri Thomas MD [address] [place] [address] 11/28/2024 7:30 AM CDT Hospital Encounter [facility] [place] [address] Bogdan Camacho MD 3 [place] [address] 11/28/2024 7:30 AM CDT - 11/28/2024 12:44 PM CDT [place] [address] Bogdan Camacho MD 3 [place] [address] LUMBAR 4-5, LUMBAR 5- SACRAL 1 ANTERIOR LUMBAR INTERBODY FUSION, INTERNAL FIXATION WITH ANTERIOR LUMBAR PLATE, LUMBAR 4, LUMBAR 5, SACRAL 1 POSTERIOR SPINAL FIXATION, AUTOGRAFT, ALLOGRAFT, BONE MORPHOGENIC PROTEIN 12/12/2024 1:40 PM CDT Office Visit [facility] Multispecialty Care - [facility] 3 [facility], [address] [place] [address] Madelaine Zaragoza APRN 3 [facility] [address] [place] [address] 12/26/2024 3:20 PM CDT Office Visit [facility] Family Medicine [facility] [address] [place] [phone] Zuri Thomas MD [facility]6 [place] [address] Scheduled Procedures Name Priority Associated Diagnoses Date/Ti [...] documented as of this encounter Care Teams Client Service Consultant Relationship Specialty Start Date End Date Zuri Thomas MD [address] [place] [address] PCP - General FAMILY PRACTICE 03/17/22 Bola Deleon MD [facility]. [address] [place] [address] Referring Physician VASCULAR SURGERY 10/18/24 documented as of this encounter
[2024-11-02 09:13] LABS: Free T4 Free Thyroxine 0.77 ng/dL (0.78-2.19)
[2024-11-02 09:26] LABS: Thyroid Stimulating Hormone 2.760 uIU/mL (0.465-4.680)
[2024-11-02 10:26] LABS: Cortisol 60 Minute 19.60 ug/dL
--- NOTE | 2024-11-02 11:49 | PC.NURSE ---
LAB STAFF MEMBER NOTIFIED OF ADMINISTRATION TIME. ALLERGY TO CEPHALEXIN. HOME MEDS: FLUTICASONE PROPIONATE, SERTRALINE, OMEPRAZOLE, SYMBICORT, ALBUTEROL, FOLIC ACID, NAPROXIN, BUSPIRONE, FERROUS SULFATE
== END 2024-11-02 07:40 | disposition home or self-care (01) ==
PROVIDERS: Visit Provider Internal Medicine
DX: D35.2 Benign neoplasm of pituitary gland (principal)
CPT/HCPCS: 36415; 82533; 83003; 84439; 84443; 96372